=== PATIENT | male | born 1955 | race Two or more races ===

== ENCOUNTER 2018-06-27 17:52 | Inpatient (IN) | payer OTHER ==
[2018-06-27 18:27] LABS: VENOUS BLOOD BASE EXCESS -0.6 mmol/L; VENOUS BLOOD HCO3 25.6 mmol/L (20-32); VENOUS BLOOD PCO2 47.9 mmHg (35-63); VENOUS BLOOD PH 7.35 (7.30-7.42)
[2018-06-27 18:28] LABS: ABSOLUTE EOSINOPHILS # (AUTO) 0.1 10^3/uL (0.0-0.6); ABSOLUTE LYMPHOCYTES (AUTO) 3.1 10^3/uL (0.5-4.7); ABSOLUTE MONOCYTES (AUTO) 0.5 10^3/uL (0.1-1.4); ABSOLUTE NEUT (AUTO) 4.4 10^3/uL (1.7-8.2); BASOPHILS % (AUTO) 0.6 % (0-2); EOSINOPHILS % (AUTO) 1.1 % (0-6); HEMATOCRIT 45.1 % (37.9-51.0); LYMPHOCYTES % (AUTO) 37.9 % (13-45); MEAN CORPUSCULAR HEMOGLOBIN 29.8 pg (27.0-33.4); MEAN CORPUSCULAR HGB CONC 33.2 g/dL (32.0-36.0); MEAN CORPUSCULAR VOLUME 90 fl (80-97); MONOCYTES % (AUTO) 6.4 % (3-13); PLATELET COUNT 284 10^3/uL (150-450); RED BLOOD COUNT 5.02 10^6/uL (4.35-5.55); RED CELL DISTRIBUTION WIDTH 14.2 % (11.5-14.0); TOTAL CELLS COUNTED % (AUTO) 100 %; WHITE BLOOD COUNT 8.1 10^3/uL (4.0-10.5)
[2018-06-27 18:33] LABS: INTERNATIONAL RATION (INR) 0.92; PROTHROMBIN TIME 12.8 SEC (11.4-15.4)
[2018-06-27 18:42] LABS: APPEARANCE,URINE CLEAR; BILIRUBIN,URINE NEGATIVE (NEGATIVE); COLOR,URINE STRAW; GLUCOSE, URINE NEGATIVE (NEGATIVE); KETONES,URINE NEGATIVE (NEGATIVE); LEUKOCYTE ESTERASE,URINE NEGATIVE (NEGATIVE); NITRITE,URINE NEGATIVE (NEGATIVE); PROTEIN,URINE NEGATIVE (NEGATIVE); URINE SPECIFIC GRAVITY 1.005; UROBILINOGEN,URINE NEGATIVE mg/dL (<2.0)
--- NOTE | 2018-06-27 18:43 | RADIOLOGY REPORT (SQ) ---
EXAM DESCRIPTION: CHEST SINGLE VIEW COMPLETED DATE/TIME: 06/27/2018 6:33 pm REASON FOR STUDY: bed 9 sepsis protocol COMPARISON: None. NUMBER OF VIEWS: One view. TECHNIQUE: Single frontal radiographic view of the chest acquired. LIMITATIONS: None. FINDINGS: LUNGS AND PLEURA: No opacities, masses or pneumothorax. No pleural effusion. Attenuated bl ood vessels and flattened gregorio-diaphragms. MEDIASTINUM AND HILAR STRUCTURES: No masses. Contour normal. HEART AND VASCULAR STRUCTURES: Heart normal in size. Normal vasculature. BONES: No acute findings. HARDWARE: None in the chest. OTHER: No other significant finding. IMPRESSION: COPD. NO ACUTE RADIOGRAPHIC FINDING IN THE CHEST. TECHNICAL DOCUMENTATION: JOB ID: [id number] [employer]- All Rights Reserved Reading location - IP/workstation name: [email or web address]
--- NOTE | 2018-06-27 18:44 | ER Document Report ---
ED Respiratory Problem - General Mode of Arrival: Ambulatory Information source: Patient TRAVEL OUTSIDE OF THE [place] IN LAST 30 DAYS: No <MICHELINE SOLIS - Last Filed: 06/28/18 00:24> <CATRACHITO COLO - Last Filed: 06/28/18 02:33> - General Chief Complaint: Shortness Of Breath Stated Complaint: DIFFICULTY BREATHING Time Seen by Provider: 06/27/18 18:21 Notes: Patient is a 62 year old male with COPD and diabetes presents to the emergency department via EMS complaining of shortness of breath onset today. Patient states the shortness of breath was onset suddenly and denies an increased usage of his inhaler at home and also states he is on CPAP at home. Patient also complains of a cough. Patient denies any fevers. 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 He states his PCP is with the [facility] in [place]. EMS proceeded to give 2 albuterol treatments, 1 Atrovent, and 125 of Solu- Medrol. (MICHELINE SOLIS) - Related Data Allergies/Adverse Reactions: No Known Allergies Allergy (Unverified 06/27/18 19:59) Past Medical History - General Information source: Patient - Social History Smoking Status: Former Smoker Cigarette use (# per day): No Chew tobacco use (# tins/day): No Smoking Education Provided: No Frequency of alcohol use: Occasional Family History: Other - CHF Pulmonary Medical History: Reports: Hx COPD Endocrine Medical History: Reports: Hx Diabetes Mellitus Type 2 <MICHELINE SOLIS - Last Filed: 06/28/18 00:24> Review of Systems - Review of Systems Constitutional: No symptoms reported EENT: No symptoms reported Cardiovascular: No symptoms reported Respiratory: See HPI Gastrointestinal: No symptoms reported Genitourinary: No symptoms reported Male Genitourinary: No symptoms reported Musculoskeletal: No symptoms reported Skin: No symptoms reported Hematologic/Lymphatic: No symptoms reported Neurological/Psychological: No symptoms reported -: Yes All other systems reviewed and negative <MICHELINE SOLIS - Last Filed: 06/28/18 00:24> Physical Exam <MICHELINE SOLIS - Last Filed: 06/28/18 00:24> <CATRACHITO COOL - Last Filed: 06/28/18 02:33> - Vital signs Vitals: Resp Pulse Ox 28 H 100 06/27/18 18:00 06/27/18 18:00 - Notes Notes: GENERAL: Alert, interacts well. Moderate distress. HEAD: Normocephalic, atraumatic. EYES: Pupils equal, round, and reactive to light. Extraocular movements intact. ENT: Oral mucosa dry, tongue midline. NECK: Full range of motion. Supple. Trachea midline. LUNGS: Moderate respiratory distress, on BiPAP. Fine expiratory wheezes throughout. HEART: Regular rate and rhythm. No murmurs, gallops, or rubs. ABDOMEN: Soft, non-tender. Non-distended. Bowel sounds present in all 4 quadrants. EXTREMITIES: Moves all 4 extremities spontaneously. NEUROLOGICAL: Alert and oriented x3. Normal speech. PSYCH: Normal affect, normal mood. SKIN: Warm, dry, normal turgor. No rashes or lesions noted. (MICHELINE SOLIS) Course - Laboratory Result Diagrams: 06/27/18 18:00 06/27/18 19:00 <MICHELINE SOLIS - Last Filed: 06/28/18 00:24> - Laboratory Result Diagrams: 06/27/18 18:00 06/27/18 19:00 - Diagnostic Test Radiology reviewed: Reports reviewed <CATRACHITO COOL - Last Filed: 06/28/18 02:33> - Re-evaluation Re-evalutation: 06/27/18 19:22 Breathing improved on BiPAP. Speaking in full sentences with BiPAP. 06/27/18 21:11 Patient rechecked. Patient failed his trial off of BiPAP and has accidentally pulled his iv out. (MICHELINE SOLIS) Patient is a 62-year-old male who comes in with difficulty breathing and also had some alcohol before coming in. Patient has a history of COPD. Denies chest pain or any heart problems. Patient was given Solu-Medrol and DuoNeb. He is also given magnesium and was on BiPAP. Patient seemed to be improving and was trialed off BiPAP. He became tachypneic and hypoxic and had to be placed back on BiPAP. Given his symptoms and respiratory distress that has continued, he will be referred to the hospitalist service for admission. No pneumonia on chest x-ray. Patient and family are agreeable to this plan. Stable at the time of admission. Of note, patient denies any history of alcohol withdrawal. (CATRACHITO COOL) - Vital Signs Vital signs: Temp Pulse Resp BP Pulse Ox 15 122/83 100 06/28/18 00:22 06/27/18 23:02 06/28/18 00:22 - Laboratory Laboratory results interpreted by me: 06/27/18 06/27/18 06/27/18 18:00 19:00 19:00 RDW 14.2 H Glucose 135 H POC Glucose Lactic Acid 3.4 H 06/27/18 20:14 RDW Glucose POC Glucose 153 H Lactic Acid Critical Care Note - Critical Care Note Total time excluding time spent on procedures (mins): 45 - Evaluation and management of respiratory distress, management of COPD exacerbation, initiation of BiPAP, multiple re-evaluations, coordination of admission, counseling of patient and family <CATRACHITO COOL - Last Filed: 06/28/18 02:33> Discharge <MICHELINE SOLIS - Last Filed: 06/28/18 00:24> - Discharge Admitting Provider: Hospitalist - [facility] Unit Admitted: IMCU <CATRACHITO COOL - Last Filed: 06/28/18 02:33> - Discharge Clinical Impression: COPD exacerbation, Respiratory distress Alcohol intoxication Qualifiers: Complication of substance-induced condition: uncomplicated Qualified Code(s): F10.920 - Alcohol use, unspecified with intoxication, uncomplicated Condition: Stable Disposition: ADMITTED INPATIENT Scribe Attestation: 06/28/18 02:33 I personally performed the services described in the documentation, reviewed and edited the documentation which was dictated to the scribe in my presence, and it accurately records my words and actions. (CATRACHITO COOL)
[2018-06-27] MEDS ORDERED: NORMAL SALINE 1000 ML 500 ML IV ONE (19:04)
[2018-06-27] MEDS: MAGNESIUM SULFATE/D5W 1 GM/100 ML RTUPB IV SCH ×2 (19:05→20:26)
[2018-06-27 19:33] LABS: ALANINE AMINOTRANSFERASE 28 U/L (21-72); ALBUMIN 4.5 g/dL (3.5-5.0); ALCOHOL 159 mg/dL (NONE DETECTED); ALKALINE PHOSPHATASE 95 U/L (38-126); ANION GAP 18 (5-19); ASPARTATE AMINO TRANSFERASE 27 U/L (17-59); BILIRUBIN,DIRECT 0.3 mg/dL (0.0-0.4); BILIRUBIN,TOTAL 0.3 mg/dL (0.2-1.3); BLOOD UREA NITROGEN 8 mg/dL (7-20); CALCIUM 9.4 mg/dL (8.4-10.2); CARBON DIOXIDE 22 mmol/L (22-30); CHLORIDE 104 mmol/L (98-107); GLUCOSE 135 mg/dL (75-110); POTASSIUM 4.8 mmol/L (3.6-5.0); SODIUM 144.1 mmol/L (137-145); TOTAL PROTEIN 7.6 g/dL (6.3-8.2)
[2018-06-27] MEDS ORDERED: LEVOFLOXACIN 750 MG/D5W RTU 750 MG/150 ML RTUPB IV ONE (20:30)
[2018-06-27] MEDS ORDERED: CHLORPHENIRAMINE MALEATE 4 MG TABLET PO ONE ×2 (22:06→22:30)
[2018-06-27] MEDS ORDERED: HYDRALAZINE HCL INJ/PF 20 MG/1 ML SDV IV PRN (22:06)
[2018-06-27] MEDS ORDERED: IPRATROPIUM/ALBUTEROL 0.5-2.5 MG/3 ML AMPUL NEB PRN (22:07)
[2018-06-27] MEDS ORDERED: DEXTROSE 40% GEL 15 GM TUBE PO PRN ×2 (22:10)
[2018-06-27] MEDS ORDERED: GLUCAGON,HUMAN RECOMB 1 MG INJ IM PRN (22:10)
[2018-06-27] MEDS ORDERED: INSULIN LISPRO 100 UNIT/ML 3 ML VIAL SUBCUT PRN (22:10)
[2018-06-27] MEDS ORDERED: DEXTROSE 50%-WATER 25 GM/50 ML DISP.SYRIN IV PRN ×2 (22:10)
[2018-06-27] MEDS ORDERED: GABAPENTIN 400 MG CAPSULE PO ONE (22:30)
[2018-06-27] MEDS ORDERED: THIAMINE HCL 100 MG, FOLIC ACID 1 MG in NORMAL SALINE 250 ML IV ONE (22:30)
[2018-06-27] MEDS ORDERED: ATORVASTATIN CALCIUM 80 MG TABLET PO ONE (22:30)
[2018-06-27] MEDS ORDERED: FLUTICASONE NASAL SPRAY 50 MCG/SPRY 120 SPRAY/16 GM NASL ONE (22:30)
[2018-06-27] MEDS ORDERED: HEPARIN SOD (PORCINE) 5,000 UNIT/ML 1 ML SYRINGE SUBCUT ONE (22:30)
[2018-06-27] MEDS ORDERED: THIAMINE HCL INJ 200 MG/2 ML VIAL IV ONE (22:45)
[2018-06-27] MEDS ORDERED: NORMAL SALINE 250 ML IV ONE (22:45)
[2018-06-27] MEDS ORDERED: FOLIC ACID INJ 5 MG/1 ML 10 ML VIAL IV ONE (22:45)
[2018-06-28] MEDS: IPRATROPIUM/ALBUTEROL 0.5-2.5 MG/3 ML AMPUL NEB SCH ×4 (01:49→20:58)
--- NOTE | 2018-06-28 05:07 | PDOC H&P ---
History of Present Illness Admission Date/PCP: 06/27/18 21:26 Patient complains of: Shortness of breath History of Present Illness: ZAC PRESTON is a 62 year old male with a past medical history of COPD, chronic bronchitis, diabetes, obstructive sleep apnea, neuropathy and questionable alcohol dependence. Patient presents via EMS with shortness of breath over the last 24 hours. In the emergency room he is found to be hypoxic requiring BiPAP and acutely intoxicated. Denying chest pain or palpitations, infectious contacts or leg swelling. He is minimally improved with treatment including steroids, empiric antibiotic, BiPAP, albuterol and Atrovent. Past Medical History Pulmonary Medical History: Reports: Bronchitis, Chronic Obstructive Pulmonary Disease (COPD), Sleep Apnea Endocrine Medical History: Reports: Diabetes Mellitus Type 2 Psychiatric Medical History: Reports: Alcohol Dependency Social History Information Source: Patient, Relative Lives with: Spouse/Significant other Smoking Status: Former Smoker Number of Years Smokin Last Time Smoked: 2015 Frequency of Alcohol Use: Social Hx Recreational Drug Use: No Hx Prescription Drug Abuse: No - Advance Directive Resuscitation Status: Full Code Family History Family History: Other - CHF Parental Family History Reviewed: Yes Children Family History Reviewed: Yes Sibling(s) Family History Reviewed.: Yes Medication/Allergy Home Medications: Albuterol Sulfate [Albuterol Sulfate 2.5mg/3 mL] 2.5 mg NEB Q6 06/27/18 Albuterol Sulfate [Proair HFA Inhalation Aerosol 8.5 gm MDI] 1 puff IH Q6HP PRN 06/27/18 Atorvastatin Calcium [Lipitor 80 mg Tablet] 80 mg PO QHS 06/27/18 Budesonide/Formoterol Fumarate [Symbicort 160-4.5 Mcg Inhaler] 1 puff IH Q12 Fluticasone Propionate [Flonase Nasal [place] 50 Mcg/[place] 16 gm] 1 spray NASL BID 06/27/18 Furosemide [Lasix 20 mg Tablet] 20 mg PO DAILY 06/27/18 Gabapentin [Neurontin 400 mg Capsule] 400 mg PO Q8 06/27/18 Guaifenesin [Mucus Relief Chest Congestion] 400 mg PO TID 06/27/18 Metformin HCl [Glucophage 500 mg Tablet] 500 mg PO BID 06/27/18 Roflumilast [Daliresp 500 mcg Tablet] 500 mcg PO DAILY 06/27/18 Theophylline Anhydrous [Theophylline] 400 mg PO DAILY 06/27/18 Tiotropium [place] [Spiriva Handihaler 5 Cap/Kit (18 Mcg/Cap)] 1 puff IH DAILY 06/27/18 Allergies/Adverse Reactions: No Known Allergies Allergy (Unverified 06/27/18 19:59) Review of Systems Constitutional: ABSENT: chills, fever(s), headache(s), weight gain, weight loss Eyes: ABSENT: visual disturbances Ears: ABSENT: hearing changes Cardiovascular: ABSENT: chest pain, dyspnea on exertion, edema, orthropnea, palpitations Respiratory: ABSENT: cough, hemoptysis Gastrointestinal: ABSENT: abdominal pain, constipation, diarrhea, hematemesis, hematochezia, nausea, vomiting Genitourinary: ABSENT: dysuria, hematuria Musculoskeletal: ABSENT: joint swelling Integumentary: ABSENT: rash, wounds Neurological: ABSENT: abnormal gait, abnormal speech, confusion, dizziness, focal weakness, syncope Psychiatric: ABSENT: anxiety, depression, homidical ideation, suicidal ideation Endocrine: ABSENT: cold intolerance, heat intolerance, polydipsia, polyuria Hematologic/Lymphatic: ABSENT: easy bleeding, easy bruising Physical Exam Vital Signs: Temp Pulse Resp BP Pulse Ox 15 122/83 98 06/28/18 00:22 06/27/18 23:02 06/28/18 03:34 Pulse Oximeter Continuous Start: 06/27/18 22: 07 Freq: RTQ4 Status: Active Document 06/28/18 03:34 CMI (Rec: 06/28/18 03:35 CMI [id number]) Pulse Oximetry Assessment Oxygen Saturation (92-100) 98 Oxygen Flow Rate (L/min) 4 Oxygen Delivery Method Nasal Cannula Fraction of Inspired Oxygen (FIO2) 36 Equipment Usage Initial Set Up Continuous Pulse Oximeter 24 Hour Charge Charge Now Continuous SpO2 Machine # 1 Intake & Output 06/26/18 06/27/18 06/28/18 11:59 11:59 11:59 Intake Total 500 Balance 500 General appearance: PRESENT: cooperative, disheveled, mild distress, obese Head exam: PRESENT: atraumatic, normocephalic Eye exam: PRESENT: conjunctiva pink, EOMI, PERRLA. ABSENT: scleral icterus Ear exam: PRESENT: normal external ear exam Mouth exam: PRESENT: moist, tongue midline Neck exam: ABSENT: carotid bruit, JVD, lymphadenopathy, thyromegaly Respiratory exam: PRESENT: crackles, decreased breath sounds, prolonged expiratory phas, retraction, symmetrical, tachypnea, wheezes. ABSENT: rales, rhonchi Cardiovascular exam: PRESENT: RRR. ABSENT: diastolic murmur, rubs, systolic murmur Pulses: PRESENT: normal dorsalis pedis pul Vascular exam: PRESENT: normal capillary refill GI/Abdominal exam: PRESENT: normal bowel sounds, soft. ABSENT: distended, guarding, mass, organolmegaly, rebound, tenderness Rectal exam: PRESENT: deferred Extremities exam: PRESENT: full ROM. ABSENT: calf tenderness, clubbing, pedal edema Neurological exam: PRESENT: alert, awake, oriented to person, oriented to place , oriented to time, oriented to situation, CN II-XII grossly intact. ABSENT: motor sensory deficit Psychiatric exam: PRESENT: unusual affect Skin exam: PRESENT: dry, intact, warm. ABSENT: cyanosis, rash Results Laboratory Results: 06/27/18 23:43 Lactic Acid 3.7 H Impressions: Chest X-Ray 06/27/18 17:56 IMPRESSION: COPD. NO ACUTE RADIOGRAPHIC FINDING IN THE CHEST. Assessment & Plan - Diagnosis (1) COPD exacerbation Is this a current diagnosis for this admission?: Yes Plan: Telemetry observation, supplemental oxygen, albuterol and Atrovent, incentive spirometry, flutter valve, prednisone (2) Acute bronchitis Is this a current diagnosis for this admission?: Yes Plan: Trial prednisone and empiric antibiotic. Consider repeat chest x-ray if worsened (3) Sleep apnea Is this a current diagnosis for this admission?: Yes Plan: BiPAP support (4) Alcohol intoxication Qualifiers: Complication of substance-induced condition: uncomplicated Qualified Code(s ): F10.920 - Alcohol use, unspecified with intoxication, uncomplicated Is this a current diagnosis for this admission?: Yes Plan: Alcohol counseling, no history of DTs (5) Respiratory distress Is this a current diagnosis for this admission?: Yes Plan: Secondary to #1 - Time Time Spent: 50 to 70 Minutes
[2018-06-28] MEDS: HEPARIN SOD (PORCINE) 5,000 UNIT/ML 1 ML SYRINGE SUBCUT SCH ×3 (06:22→21:51)
[2018-06-28] MEDS: GABAPENTIN 400 MG CAPSULE PO SCH ×3 (06:23→21:48)
[2018-06-28 06:55] LABS: ABSOLUTE LYMPHOCYTES (AUTO) 1.1 10^3/uL (0.5-4.7); ABSOLUTE MONOCYTES (AUTO) 0.3 10^3/uL (0.1-1.4); ABSOLUTE NEUT (AUTO) 6.9 10^3/uL (1.7-8.2); BASOPHILS % (AUTO) 0.5 % (0-2); EOSINOPHILS % (AUTO) 0.1 % (0-6); HEMATOCRIT 41.3 % (37.9-51.0); MEAN CORPUSCULAR HEMOGLOBIN 30.5 pg (27.0-33.4); MEAN CORPUSCULAR HGB CONC 33.9 g/dL (32.0-36.0); MEAN CORPUSCULAR VOLUME 90 fl (80-97); MONOCYTES % (AUTO) 3.8 % (3-13); PLATELET COUNT 265 10^3/uL (150-450); RED BLOOD COUNT 4.59 10^6/uL (4.35-5.55); RED CELL DISTRIBUTION WIDTH 14.1 % (11.5-14.0); SEGMENTED NEUTROPHILS % (AUTO) 82.6 % (42-78); TOTAL CELLS COUNTED % (AUTO) 100 %; WHITE BLOOD COUNT 8.3 10^3/uL (4.0-10.5)
[2018-06-28 06:55] LABS: URINE AMPHETAMINES SCREEN NEGATIVE; URINE BARBITURATES SCREEN NEGATIVE; URINE BENZODIAZEPINES SCREEN NEGATIVE; URINE COCAINE SCREEN NEGATIVE; URINE MARIJUANA (THC) SCREEN NEGATIVE; URINE METHADONE SCREEN NEGATIVE
[2018-06-28 07:16] LABS: URINE PHENCYCLIDINE SCREEN NEGATIVE
[2018-06-28 07:22] LABS: ANION GAP 14 (5-19); BLOOD UREA NITROGEN 14 mg/dL (7-20); CALCIUM 9.3 mg/dL (8.4-10.2); CARBON DIOXIDE 26 mmol/L (22-30); CHLORIDE 104 mmol/L (98-107); GLUCOSE 153 mg/dL (75-110); POTASSIUM 4.8 mmol/L (3.6-5.0); SODIUM 143.5 mmol/L (137-145)
--- NOTE | 2018-06-28 07:48 | EKG REPORT ---
SEVERITY:- BORDERLINE ECG - SINUS TACHYCARDIA LEFT AXIS DEVIATION POOR R WAVE PROGRESSION ANTERIOR LEADS. : Confirmed by: Charlie Portillo MD 28-Jun-2018 07:47:50
[2018-06-28] MEDS: PREDNISONE 20 MG TABLET PO SCH ×2 (09:20→18:56)
[2018-06-28] MEDS: FLUTICASONE NASAL SPRAY 50 MCG/SPRY 120 SPRAY/16 GM NASL SCH ×2 (13:33→21:52)
[2018-06-28] MEDS ORDERED: FUROSEMIDE 20 MG TABLET PO ONE (13:45)
[2018-06-28] MEDS: THIAMINE HCL 100 MG, FOLIC ACID 1 MG in NORMAL SALINE 250 ML IV SCH (21:45)
[2018-06-28] MEDS: ATORVASTATIN CALCIUM 80 MG TABLET PO SCH (21:49)
[2018-06-28] MEDS: LEVOFLOXACIN 750 MG/D5W RTU 750 MG/150 ML RTUPB IV SCH (22:55)
[2018-06-29] MEDS: IPRATROPIUM/ALBUTEROL 0.5-2.5 MG/3 ML AMPUL NEB SCH ×4 (01:34→19:56)
[2018-06-29] MEDS: GABAPENTIN 400 MG CAPSULE PO SCH ×3 (06:19→21:06)
[2018-06-29] MEDS: HEPARIN SOD (PORCINE) 5,000 UNIT/ML 1 ML SYRINGE SUBCUT SCH ×3 (06:20→21:06)
[2018-06-29] MEDS: PREDNISONE 20 MG TABLET PO SCH ×2 (10:11→17:57)
[2018-06-29] MEDS: FUROSEMIDE 20 MG TABLET PO SCH (10:12)
[2018-06-29] MEDS: FLUTICASONE NASAL SPRAY 50 MCG/SPRY 120 SPRAY/16 GM NASL SCH ×2 (10:12→21:04)
--- NOTE | 2018-06-29 10:57 | PDOC PROGRESS REPORT ---
Subjective Progress Note for:: 06/28/18 Subjective:: Late entry for 06/28/18 encounter. Patient was admitted for acute bronchitis and COPD exacerbation. Patient appears slightly in distress. He is still wheezy. He still complains of shortness of breath albeit improved from when he came to the ER. Reason For Visit: COPD EXACERBATION PNEUMONIA Physical Exam Vital Signs: Temp Pulse Resp BP Pulse Ox 98.4 F 73 16 128/73 H 99 06/29/18 00:00 06/29/18 07:00 06/29/18 01:34 06/29/18 00:00 06/29/18 04:00 Pulse Oximeter Continuous Start: 06/27/18 22: 07 Freq: RTQ4 Status: Active Document 06/29/18 04:00 CMI (Rec: 06/29/18 04:05 CMI [id number]) Pulse Oximetry Assessment Oxygen Saturation (92-100) 99 Oxygen Flow Rate (L/min) 4 Oxygen Delivery Method Nasal Cannula Fraction of Inspired Oxygen (FIO2) 36 Equipment Usage Equipment in Use Continuous SpO2 Machine # 1 Intake & Output 06/28/18 06/29/18 06/30/18 06:59 06:59 06:59 Intake Total 860 1472.2 Output Total 450 2127 Balance 410 -654.8 Weight 208 lb 8.917 oz 210 lb 12.191 oz General appearance: PRESENT: mild distress Head exam: PRESENT: atraumatic, normocephalic Eye exam: PRESENT: conjunctiva pink, EOMI, PERRLA. ABSENT: scleral icterus Mouth exam: PRESENT: moist, tongue midline Neck exam: ABSENT: carotid bruit, JVD, lymphadenopathy, thyromegaly Respiratory exam: PRESENT: accessory muscle use, rhonchi, wheezes Cardiovascular exam: PRESENT: RRR. ABSENT: diastolic murmur, rubs, systolic murmur Pulses: PRESENT: normal dorsalis pedis pul GI/Abdominal exam: PRESENT: normal bowel sounds, soft. ABSENT: distended, guarding, mass, organolmegaly, rebound, tenderness Rectal exam: PRESENT: deferred Extremities exam: PRESENT: full ROM. ABSENT: calf tenderness, clubbing, pedal edema Results Laboratory Results: 06/28/18 06:33 06/28/18 06:33 Impressions: Chest X-Ray 06/27/18 17:56 IMPRESSION: COPD. NO ACUTE RADIOGRAPHIC FINDING IN THE CHEST. Assessment & Plan - Diagnosis (1) Acute respiratory failure with hypoxia Is this a current diagnosis for this admission?: Yes Plan: This is secondary to acute COPD exacerbation. Patient required BiPAP in the ER. He is saturating currently on BiPAP at still appear short of breath. Continue BiPAP. Wean down O2 requirements to nasal cannula as tolerated. (2) COPD exacerbation Is this a current diagnosis for this admission?: Yes Plan: COPD exacerbation with acute bronchitis. Patient did complain of increasing shortness of breath and minimally productive cough. Continue steroids, scheduled breathing treatments and antibiotics. (3) Alcohol use disorder Is this a current diagnosis for this admission?: Yes Plan: She did came in with elevated alcohol level. He did say that he drinks but only 2-3 times a month. He denies previous history of alcohol withdrawal. - Time Time Spent with patient: 15-24 minutes
--- NOTE | 2018-06-29 11:00 | PDOC PROGRESS REPORT ---
Subjective Progress Note for:: 06/29/18 Subjective:: Patient appears comfortable sitting on bed nasal cannula. He says he feels much better today and he is close to his baseline. Denies fever or chills. Denies chest pain. He is tolerating diet well. Reason For Visit: COPD EXACERBATION PNEUMONIA Physical Exam Vital Signs: Temp Pulse Resp BP Pulse Ox 98.2 F 81 20 124/75 100 06/29/18 07:58 06/29/18 07:58 06/29/18 07:58 06/29/18 07:58 06/29/18 07:58 Pulse Oximeter Continuous Start: 06/27/18 22: 07 Freq: RTQ4 Status: Active Document 06/29/18 04:00 CMI (Rec: 06/29/18 04:05 CMI [id number]) Pulse Oximetry Assessment Oxygen Saturation (92-100) 99 Oxygen Flow Rate (L/min) 4 Oxygen Delivery Method Nasal Cannula Fraction of Inspired Oxygen (FIO2) 36 Equipment Usage Equipment in Use Continuous SpO2 Machine # 1 Intake & Output 06/28/18 06/29/18 06/30/18 06:59 06:59 06:59 Intake Total 860 1472.2 Output Total 450 2127 Balance 410 -654.8 Weight 208 lb 8.917 oz 210 lb 12.191 oz General appearance: PRESENT: no acute distress, well-developed, well-nourished Eye exam: PRESENT: conjunctiva pink, EOMI, PERRLA. ABSENT: scleral icterus Mouth exam: PRESENT: moist, tongue midline Neck exam: ABSENT: carotid bruit, JVD, lymphadenopathy, thyromegaly Respiratory exam: PRESENT: wheezes - Occasional wheezes bilaterally albeit significantly improved from yesterday, no crackles, no use of accessory muscles Cardiovascular exam: PRESENT: RRR. ABSENT: diastolic murmur, rubs, systolic murmur Pulses: PRESENT: normal dorsalis pedis pul GI/Abdominal exam: PRESENT: normal bowel sounds, soft. ABSENT: distended, guarding, mass, organolmegaly, rebound, tenderness Rectal exam: PRESENT: deferred Extremities exam: PRESENT: full ROM. ABSENT: calf tenderness, clubbing, pedal edema Neurological exam: PRESENT: alert, awake, oriented to person, oriented to place , oriented to time, oriented to situation, CN II-XII grossly intact. ABSENT: motor sensory deficit Results Laboratory Results: 06/28/18 06:33 06/28/18 06:33 Impressions: Chest X-Ray 06/27/18 17:56 IMPRESSION: COPD. NO ACUTE RADIOGRAPHIC FINDING IN THE CHEST. Assessment & Plan - Diagnosis (1) Acute respiratory failure with hypoxia Is this a current diagnosis for this admission?: Yes Plan: Patient has been off BiPAP since last night. He is currently saturating well on 2 L of nasal cannula (2) COPD exacerbation Is this a current diagnosis for this admission?: Yes Plan: COPD exacerbation with acute bronchitis. Patient did complain of increasing shortness of breath and minimally productive cough. Continue steroids, scheduled breathing treatments and antibiotics. (3) Alcohol use disorder Is this a current diagnosis for this admission?: Yes Plan: She did came in with elevated alcohol level. He did say that he drinks but only 2-3 times a month. He denies previous history of alcohol withdrawal. Counseled on alcohol drinking moderation. - Time Time Spent with patient: 15-24 minutes
[2018-06-29] MEDS: THIAMINE HCL 100 MG, FOLIC ACID 1 MG in NORMAL SALINE 250 ML IV SCH (21:03)
[2018-06-29] MEDS: ATORVASTATIN CALCIUM 80 MG TABLET PO SCH (21:05)
[2018-06-29] MEDS: LEVOFLOXACIN 750 MG/D5W RTU 750 MG/150 ML RTUPB IV SCH (22:13)
[2018-06-30] MEDS: IPRATROPIUM/ALBUTEROL 0.5-2.5 MG/3 ML AMPUL NEB SCH ×3 (02:07→13:57)
[2018-06-30] MEDS: HEPARIN SOD (PORCINE) 5,000 UNIT/ML 1 ML SYRINGE SUBCUT SCH ×2 (05:09→13:24)
[2018-06-30] MEDS: GABAPENTIN 400 MG CAPSULE PO SCH ×2 (05:09→13:52)
[2018-06-30] MEDS: FLUTICASONE NASAL SPRAY 50 MCG/SPRY 120 SPRAY/16 GM NASL SCH (10:24)
[2018-06-30] MEDS: PREDNISONE 20 MG TABLET PO SCH ×2 (10:24→16:20)
[2018-06-30] MEDS: FUROSEMIDE 20 MG TABLET PO SCH (10:24)
[2018-06-30 16:13] VITALS: BP 123/79
--- NOTE | 2018-06-30 17:50 | PDOC DISCHARGE SUMMARY ---
General - Admit/Disc Date/PCP Admission Date/Primary Care Provider: 06/29/18 12:32 Discharge Date: 06/30/18 - Discharge Diagnosis (1) Acute respiratory failure with hypoxia Is this a current diagnosis for this admission?: Yes (2) COPD exacerbation Is this a current diagnosis for this admission?: Yes (3) Alcohol use disorder Is this a current diagnosis for this admission?: Yes - Additional Information Resuscitation Status: Full Code Prescriptions: Prednisone [Deltasone 20 mg Tablet] 40 mg PO BID 10 Days #20 tablet Home Medications: Albuterol Sulfate [Albuterol Sulfate 2.5mg/3 mL] 2.5 mg NEB Q6 06/27/18 Atorvastatin Calcium [Lipitor 80 mg Tablet] 80 mg PO QHS 06/27/18 Budesonide/Formoterol Fumarate [Symbicort 160-4.5 Mcg Inhaler] 1 puff IH Q12 Fluticasone Propionate [Flonase Nasal [place] 50 Mcg/[place] 16 gm] 1 spray NASL BID 06/27/18 Furosemide [Lasix 20 mg Tablet] 20 mg PO DAILY 06/27/18 Gabapentin [Neurontin 400 mg Capsule] 400 mg PO Q8 06/27/18 Guaifenesin [Mucus Relief Chest Congestion] 400 mg PO TID 06/27/18 Metformin HCl [Glucophage 500 mg Tablet] 500 mg PO BID 06/27/18 Roflumilast [Daliresp 500 mcg Tablet] 500 mcg PO DAILY 06/27/18 Theophylline Anhydrous [Theophylline] 400 mg PO DAILY 06/27/18 Tiotropium [place] [Spiriva Handihaler 5 Cap/Kit (18 Mcg/Cap)] 1 puff IH DAILY 06/27/18 Ipratropium/Albuterol Sulfate [Duoneb 3 ml Ampul] 3 ml NEB RTQ6 vial.neb Prednisone [Deltasone 20 mg Tablet] 40 mg PO BID 10 Days #20 tablet 06/30/18 History of Present Illness History of Present Illness: ZAC PRESTON is a 62 year old male with a past medical history of COPD, chronic bronchitis, diabetes, obstructive sleep apnea, neuropathy and questionable alcohol dependence. Patient presents via EMS with shortness of breath over the last 24 hours. In the emergency room he is found to be hypoxic requiring BiPAP and acutely intoxicated. Denying chest pain or palpitations, infectious contacts or leg swelling. He is minimally improved with treatment including steroids, empiric antibiotic, BiPAP, albuterol and Atrovent. Hospital Course Hospital Course: Patient was admitted for acute on chronic hypoxic respiratory failure secondary to COPD exacerbation. Also came in with alcohol intoxication. Patient was started on empiric antibiotics. He was also started on IV steroids and scheduled breathing treatments. Patient had gradual clinical improvement in his respiratory status. On day of discharge, patient says that he is at his baseline. He does say that the pain in his baseline he gets occasional wheezing in a short of breath when he walks from his bed towards the living room. Patient will be as sent home on a longer course of oral steroid tapering. He was also instructed to continue using DuoNeb scheduled for the next 2 days. Patient has completed 3 days of IV antibiotics and will not be sent home on oral antibiotics. Blood cultures were negative after 48 hrs. Chest x-ray was negative for pneumonia. 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 Physical Exam Vital Signs: Temp Pulse Resp BP Pulse Ox 97.8 F 96 21 H 112/84 98 06/30/18 12:00 06/30/18 14:00 06/30/18 13:57 06/30/18 12:00 06/30/18 13:57 Pulse Oximeter Continuous Start: 06/27/18 22: 07 Freq: RTQ4 Status: Active Document 06/30/18 13:57 TPO (Rec: 06/30/18 14:09 TPO [id number]) Pulse Oximetry Assessment Oxygen Saturation (92-100) 98 Oxygen Flow Rate (L/min) 3 Oxygen Delivery Method Nasal Cannula Fraction of Inspired Oxygen (FIO2) 32 Equipment Usage Equipment in Use Continuous SpO2 Machine # 1 Intake & Output 06/29/18 06/30/18 07/01/18 06:59 06:59 06:59 Intake Total 857.2 Output Total 1300 Balance -442.8 Weight 217 lb 6.012 oz General appearance: PRESENT: no acute distress, well-developed, well-nourished Head exam: PRESENT: atraumatic, normocephalic Eye exam: PRESENT: conjunctiva pink, EOMI, PERRLA. ABSENT: scleral icterus Neck exam: ABSENT: carotid bruit, JVD, lymphadenopathy, thyromegaly Respiratory exam: PRESENT: wheezes - Occasional wheezes bilaterally significantly improved from yesterday. No crackles. Cardiovascular exam: PRESENT: RRR. ABSENT: diastolic murmur, rubs, systolic murmur Pulses: PRESENT: normal dorsalis pedis pul Vascular exam: PRESENT: normal capillary refill GI/Abdominal exam: PRESENT: normal bowel sounds, soft. ABSENT: distended, guarding, mass, organolmegaly, rebound, tenderness Rectal exam: PRESENT: deferred Neurological exam: PRESENT: alert, awake, oriented to person, oriented to place , oriented to time, oriented to situation, CN II-XII grossly intact. ABSENT: motor sensory deficit Results Impressions: Chest X-Ray 06/27/18 17:56 IMPRESSION: COPD. NO ACUTE RADIOGRAPHIC FINDING IN THE CHEST. Qualifiers - * PATIENT BEING DISCHARGED WITH ANY OF THE FOLLOWING DIAGNOSIS: No
== END 2018-06-30 17:45 | disposition home or self-care (01) | DRG 190 ==
LOC: ER 17:52 → INTOOBSV 21:26 → EH 21:26 → 5 06-28 03:16 → OBSVTOIN 06-29 12:32
PROVIDERS: ADMIT Internal Medicine; ATTEND Internal Medicine
PROC: 5A09457 Assistance with Respiratory Ventilation, 24-96 Consecutive Hours, Continuous Positive Airway Pressure (ICD-10-PCS; principal; 2018-06-27)
DX: J44.1 Chronic obstructive pulmonary disease with (acute) exacerbation (principal); J96.01 Acute respiratory failure with hypoxia; F10.229 Alcohol dependence with intoxication, unspecified; J44.0 Chronic obstructive pulmonary disease with (acute) lower respiratory infection; J20.9 Acute bronchitis, unspecified; G47.33 Obstructive sleep apnea (adult) (pediatric); E11.42 Type 2 diabetes mellitus with diabetic polyneuropathy; Z87.891 Personal history of nicotine dependence; Z79.51 Long term (current) use of inhaled steroids; Z79.84 Long term (current) use of oral hypoglycemic drugs
CPT/HCPCS: 36415; 71045; 80048; 80053; 80307; 81001; 82803; 82962; 83605; 83880; 84484; 85025; 85610; 87040; 87077; 87086; 93005; 93010; 94660; 94667; 94668; 94762; 94799; 96365; 96366; 96368; 99291; G0378; J1644; J1815; J1956; J3411; J3475; J3490; J7030; J7050; J7512; J7620

== ENCOUNTER 2019-01-23 09:51 | Day surgery (SDC) | payer OTHER ==
[~2019-01-23 09:51] MED LIST: CHONDR SU A NA/HYALUR INTRAOC KIT (SURGICARE) ONE; EPINEPHRINE INJ/PF 1 MG/1 ML AMPULE ONE; KETOROLAC TROMETHAMINE 0.45% 4 DROP/0.4 ML DROPERETTE OD PRN; LIDOCAINE 1% INJ-PF (10 MG/ML) 30 ML SDV ONE
[2019-01-23] MEDS ORDERED: FENTANYL CITRATE INJ/PF 100 MCG/2 ML AMPUL ONE (10:54)
[2019-01-23] MEDS ORDERED: MIDAZOLAM 2 MG/2 ML INJ ONE (10:54)
[2019-01-23] MEDS: TROPICAMIDE 1% OPH SOLN 3 ML OD PRN ×3 (10:56→11:12)
[2019-01-23] MEDS: CYCLOPENTOLATE 0.2%/PHENYLEPHRINE 1% OPH SOLN 2 ML OD PRN ×3 (10:56→11:12)
[2019-01-23] MEDS: BESIFLOXACIN HCL 0.6% OPH SUSP 5 ML BOTTLE OD PRN ×4 (10:57→11:34)
[2019-01-23] MEDS ORDERED: ALBUTEROL SULFATE 0.083% NEB 2.5 MG/3 ML AMPUL NEB ONE (10:57)
[2019-01-23] MEDS: TETRACAINE HCL 0.5% OPH SOLN 0.6 ML DROPERETTE OD PRN ×3 (10:58→11:15)
[2019-01-23] MEDS: DORZOLAMIDE HCL 2%/TIMOLOL MALEAT 0.5% OPH SOLN 10 ML OD PRN ×2 (11:34)
[2019-01-23] MEDS: TOBRAMYCIN SULFATE/DEXAMETH OPH OINTMENT 3.5 GM ONE ×2 (11:34)
[2019-01-23] MEDS ORDERED: LIDOCAINE 1%/PHENYLEPHRINE 1.5% 1 ML VIAL ONE (11:50)
== END 2019-01-23 12:31 | disposition home or self-care (01) ==
LOC: SC 09:51
PROVIDERS: ATTEND Ophthalmology
DX: H25.11 Age-related nuclear cataract, right eye (principal); J43.9 Emphysema, unspecified; J96.11 Chronic respiratory failure with hypoxia; E78.00 Pure hypercholesterolemia, unspecified; I10 Essential (primary) hypertension; Z79.84 Long term (current) use of oral hypoglycemic drugs; Z79.899 Other long term (current) drug therapy; Z79.51 Long term (current) use of inhaled steroids; Z79.891 Long term (current) use of opiate analgesic
CPT/HCPCS: 66984; 82962; V2632; J2250; J3490 ×2; J0171; J3010; J2370; 142

== ENCOUNTER 2019-02-06 09:23 | Day surgery (SDC) | payer OTHER ==
[~2019-02-06 09:23] MED LIST changes: -CHONDR SU A NA/HYALUR INTRAOC KIT (SURGICARE) ONE; -EPINEPHRINE INJ/PF 1 MG/1 ML AMPULE ONE; -KETOROLAC TROMETHAMINE 0.45% 4 DROP/0.4 ML DROPERETTE OD PRN; +KETOROLAC TROMETHAMINE 0.45% 4 DROP/0.4 ML DROPERETTE OS PRN; -LIDOCAINE 1% INJ-PF (10 MG/ML) 30 ML SDV ONE
[2019-02-06] MEDS ORDERED: LIDOCAINE 1% INJ-PF (10 MG/ML) 30 ML SDV ONE (09:51)
[2019-02-06] MEDS ORDERED: EPINEPHRINE INJ/PF 1 MG/1 ML AMPULE ONE (09:51)
[2019-02-06] MEDS ORDERED: CHONDR SU A NA/HYALUR INTRAOC KIT (SURGICARE) ONE (09:52)
[2019-02-06] MEDS: TETRACAINE HCL 0.5% OPH SOLN 0.6 ML DROPERETTE OS PRN ×3 (10:30→11:22)
[2019-02-06] MEDS: CYCLOPENTOLATE 0.2%/PHENYLEPHRINE 1% OPH SOLN 2 ML OS PRN ×3 (10:30→10:55)
[2019-02-06] MEDS: BESIFLOXACIN HCL 0.6% OPH SUSP 5 ML BOTTLE OS PRN ×4 (10:30→11:44)
[2019-02-06] MEDS: TROPICAMIDE 1% OPH SOLN 3 ML OS PRN ×3 (10:30→10:55)
[2019-02-06] MEDS ORDERED: ALBUTEROL SULFATE 0.083% NEB 2.5 MG/3 ML AMPUL NEB ONE (10:40)
[2019-02-06] MEDS ORDERED: MIDAZOLAM 2 MG/2 ML INJ ONE (11:05)
[2019-02-06] MEDS ORDERED: ONDANSETRON HCL INJ/PF 4 MG/2 ML SDV ONE (11:05)
[2019-02-06] MEDS ORDERED: FENTANYL CITRATE INJ/PF 100 MCG/2 ML AMPUL ONE (11:06)
[2019-02-06] MEDS: TOBRAMYCIN SULFATE/DEXAMETH OPH OINTMENT 3.5 GM ONE ×2 (11:44)
== END 2019-02-06 12:38 | disposition home or self-care (01) ==
LOC: SC 09:23
PROVIDERS: ATTEND Ophthalmology
DX: H25.12 Age-related nuclear cataract, left eye (principal); Z98.41 Cataract extraction status, right eye; E78.00 Pure hypercholesterolemia, unspecified; I10 Essential (primary) hypertension; E11.9 Type 2 diabetes mellitus without complications; J43.9 Emphysema, unspecified; J96.11 Chronic respiratory failure with hypoxia; Z79.899 Other long term (current) drug therapy; Z79.51 Long term (current) use of inhaled steroids; Z87.891 Personal history of nicotine dependence; Z79.84 Long term (current) use of oral hypoglycemic drugs; Z99.81 Dependence on supplemental oxygen
CPT/HCPCS: 66984; 82962; V2632; J2250; J3490 ×3; J0171; J3010; J2405; 142

== ENCOUNTER 2019-04-29 11:52 | Inpatient (IN) | payer OTHER, MEDICARE ==
--- NOTE | 2019-04-29 14:11 | ER Document Report ---
ED Medical Screen (RME) - General Chief Complaint: Edema Stated Complaint: LEG SWELLING Time Seen by Provider: 04/29/19 14:07 Primary Care Provider: [facility] [Primary Care Provider] - Follow up as needed TRAVEL OUTSIDE OF THE [place] IN LAST 30 DAYS: No - HPI Notes: 04/29/19 14:09 Patient is a 63-year-old male with a history of oxygen dependent COPD, hypertension, COPD who presents complaining of ongoing foot wound/ulceration that is been present for over a year as well as bilateral lower extremity swelling which is significantly worse than his normal. Patient states that he was seen by his film critic at the [place] [facility] in [facility] who told him that it was infected, but patient states that he is not on any antibiotics. He is eating and drinking without difficulty. He is urinating normally. Denies RODRIGUEZ, fever, neck pain, URI, CP, Abd pain, dysuria, back pain. I have treated and performed a rapid initial assessment of this patient. A comprehensive ED assessment and evaluation of the patient, analysis of test results and completion of medical decision making process will be conducted by additional ED providers. PHYSICAL EXAMINATION: GENERAL: Well-appearing, well-nourished and in no acute distress. A&Ox4. Answers questions appropriately. LUNGS: Diminished bilaterally with prolonged expiration and wheezing HEART: Regular rate and rhythm without murmurs, rubs, gallops. Extremities: 3+ pitting edema bilateral lower extremities. There is a noted foul-smelling ulceration to the left proximal foot/ankle area with associated erythema and warmth. NEUROLOGICAL: Normal speech, normal gait. PSYCH: Normal mood, normal affect. - Related Data Allergies/Adverse Reactions: No Known Allergies Allergy (Verified 01/21/19 14:38) Past Medical History - Past Medical History Cardiac Medical History: Reports: Hx Hypertension Denies: Hx Heart Attack Pulmonary Medical History: Reports: Hx Bronchitis, Hx COPD, Hx Sleep Apnea Denies: Hx Asthma Neurological Medical History: Denies: Hx Cerebrovascular Accident, Hx Seizures Endocrine Medical History: Reports: Hx Diabetes Mellitus Type 2 Renal/ Medical History: Denies: Hx Peritoneal Dialysis GI Medical History: Denies: Hx Hepatitis, Hx Hiatal Hernia, Hx Ulcer Infectious Medical History: Denies: Hx Hepatitis Past Surgical History: Denies: Hx Open Heart Surgery, Hx Pacemaker Physical Exam - Vital signs Vitals: Temp Pulse Resp BP Pulse Ox 97.6 F 99 22 H 132/75 H 93 04/29/19 12:45 04/29/19 12:45 04/29/19 12:45 04/29/19 12:45 04/29/19 12:45 Course - Vital Signs Vital signs: Temp Pulse Resp BP Pulse Ox 97.6 F 99 22 H 132/75 H 93 04/29/19 12:45 04/29/19 12:45 04/29/19 12:45 04/29/19 12:45 04/29/19 12:45 Doctor's Discharge - Discharge Referrals: [facility] [Primary Care Provider] - Follow up as needed
--- NOTE | 2019-04-29 14:53 | RADIOLOGY REPORT (SQ) ---
EXAM DESCRIPTION: ANKLE LEFT COMPLETE COMPLETED DATE/TIME: 04/29/2019 2:44 pm REASON FOR STUDY: chronic wound left prox dorsal foot/lateral ankle COMPARISON: None. NUMBER OF VIEWS: Three views. TECHNIQUE: AP, lateral, and oblique radiographic images acquired of the left ankle. LIMITATIONS: None. FINDINGS: MINERALIZATION: Normal. BONES: There is no bone destruction or other evidence of osteomyelitis. JOINTS: No effusions. SOFT TISSUES: Soft tissue wound anterior laterally at the ankle. OTHER: No other significant finding. IMPRESSION: No evidence of osteomyelitis. TECHNICAL DOCUMENTATION: JOB ID: [id number] [employer]- All Rights Reserved Reading location - IP/workstation name: [email or web address]
--- NOTE | 2019-04-29 14:54 | RADIOLOGY REPORT (SQ) ---
EXAM DESCRIPTION: FOOT LEFT COMPLETE COMPLETED DATE/TIME: 04/29/2019 2:44 pm REASON FOR STUDY: chronic wound left prox dorsal foot/lateral ankle COMPARISON: None. NUMBER OF VIEWS: Three views. TECHNIQUE: AP, lateral and oblique radiographic images acquired of the left foot. LIMITATIONS: None. FINDINGS: MINERALIZATION: Normal. BONES: No acute fracture or dislocation. No worrisome bone lesions. JOINTS: No effusions. SOFT TISSUES: Dorsal soft tissue swelling. There appears to be a wound located anterior laterally at the ankle. OTHER: No other significant finding. IMPRESSION: No evidence of osteomyelitis. TECHNICAL DOCUMENTATION: JOB ID: [id number] [employer]- All Rights Reserved Reading location - IP/workstation name: [email or web address]
--- NOTE | 2019-04-29 14:57 | RADIOLOGY REPORT (SQ) ---
EXAM DESCRIPTION: CHEST SINGLE VIEW COMPLETED DATE/TIME: 04/29/2019 2:44 pm REASON FOR STUDY: b/l LE edema, wheeze (COPD) COMPARISON: None. EXAM PARAMETERS: NUMBER OF VIEWS: One view. TECHNIQUE: Single frontal radiographic view of the chest acquired. RADIATION DOSE: NA LIMITATIONS: None. FINDINGS: LUNGS AND PLEURA: Marked hyperexpansion of the lungs is flattening the diaphragms. Scarri ng in the right upper lobe. No acute infiltrate effusion, or mass. MEDIASTINUM AND HILAR STRUCTURES: No masses. Contour normal. HEART AND VASCULAR STRUCTURES: Heart normal in size. Normal vasculature. BONES: No acute findings. HARDWARE: None in the chest. OTHER: No other significant finding. IMPRESSION: Chronic lung changes with no acute cardiopulmonary findings. TECHNICAL DOCUMENTATION: JOB ID: [id number] [employer]- All Rights Reserved Reading location - IP/workstation name: [email or web address]
[2019-04-29 15:01] LABS: ABSOLUTE EOSINOPHILS # (AUTO) 0.1 10^3/uL (0.0-0.6); ABSOLUTE LYMPHOCYTES (AUTO) 1.4 10^3/uL (0.5-4.7); ABSOLUTE MONOCYTES (AUTO) 0.6 10^3/uL (0.1-1.4); ABSOLUTE NEUT (AUTO) 5.2 10^3/uL (1.7-8.2); BASOPHILS % (AUTO) 0.6 % (0-2); EOSINOPHILS % (AUTO) 0.9 % (0-6); HEMATOCRIT 43.2 % (37.9-51.0); HEMOGLOBIN 14.6 g/dL (13.5-17.0); MEAN CORPUSCULAR HGB CONC 33.8 g/dL (32.0-36.0); MEAN CORPUSCULAR VOLUME 95 fl (80-97); MONOCYTES % (AUTO) 8.6 % (3-13); PLATELET COUNT 311 10^3/uL (150-450); RED BLOOD COUNT 4.57 10^6/uL (4.35-5.55); RED CELL DISTRIBUTION WIDTH 14.9 % (11.5-14.0); SEGMENTED NEUTROPHILS % (AUTO) 70.9 % (42-78); TOTAL CELLS COUNTED % (AUTO) 100 %; WHITE BLOOD COUNT 7.3 10^3/uL (4.0-10.5)
[2019-04-29 15:28] LABS: ALANINE AMINOTRANSFERASE 20 U/L (21-72); ALBUMIN 3.8 g/dL (3.5-5.0); ALKALINE PHOSPHATASE 116 U/L (38-126); ANION GAP 7 (5-19); ASPARTATE AMINO TRANSFERASE 19 U/L (17-59); BILIRUBIN,DIRECT 0.2 mg/dL (0.0-0.4); BILIRUBIN,TOTAL 0.3 mg/dL (0.2-1.3); BLOOD UREA NITROGEN 9 mg/dL (7-20); CARBON DIOXIDE 36 mmol/L (22-30); CHLORIDE 93 mmol/L (98-107); GLUCOSE 80 mg/dL (75-110); POTASSIUM 4.2 mmol/L (3.6-5.0); SODIUM 135.8 mmol/L (137-145); TOTAL PROTEIN 7.1 g/dL (6.3-8.2)
[2019-04-29] MEDS ORDERED: VANCOMYCIN HCL INJ 1000 MG VIAL IV ONE (16:50)
[2019-04-29] MEDS ORDERED: PIPERACILLIN/TAZOBACTAM 3.375 GM VIAL IV ONE (16:51)
[2019-04-29] MEDS ORDERED: NORMAL SALINE 1000 ML 1,000 ML IV ONE (16:51)
--- NOTE | 2019-04-29 18:20 | ER Document Report ---
ED General - General Chief Complaint: Edema Stated Complaint: LEG SWELLING Time Seen by Provider: 04/29/19 14:07 TRAVEL OUTSIDE OF THE U.S[place] IN LAST 30 DAYS: No - HPI Notes: 63-year-old male with history of COPD on 3 L of oxygen, diabetes to the emergency department with complaints of progressively worsening bilateral leg swelling, erythema, pain and left ankle wound that has been progressively worsening for the past week. He states that he has had a wound to his left ankle for several months and initially it started out about approximately 1 cm. Over time it has gotten much worse and much bigger. He has been seen at the [place] [facility]. This past week he noticed that the wound got bigger more purulent foul-smelling and the redness in his leg started to be increased greatly. He states that the warmth in the leg redness that spreading up his legs just started in the past 24 hours. He states that he did see his clinical nurse specialist 1 week ago and was told that the ulcer was infected. He was supposed to be seen in follow-up and started on antibiotics but that never happened. He denies fev ers, chills, nausea, vomiting, diarrhea, abdominal pain. - Related Data Allergies/Adverse Reactions: No Known Allergies Allergy (Verified 01/21/19 14:38) Past Medical History - General Information source: Patient - Social History Smoking Status: Former Smoker Lives with: Alone Family History: Reviewed & Not Pertinent, Other - CHF Patient has suicidal ideation: No Patient has homicidal ideation: No - Past Medical History Cardiac Medical History: Reports: Hx Congestive Heart Failure, Hx Hypertension Denies: Hx Heart Attack Pulmonary Medical History: Reports: Hx Bronchitis, Hx COPD, Hx Sleep Apnea Denies: Hx Asthma Neurological Medical History: Denies: Hx Cerebrovascular Accident, Hx Seizures Endocrine Medical History: Reports: Hx Diabetes Mellitus Type 2 Renal/ Medical History: Denies: Hx Peritoneal Dialysis GI Medical History: Denies: Hx Hepatitis, Hx Hiatal Hernia, Hx Ulcer Infectious Medical History: Denies: Hx Hepatitis Past Surgical History: Denies: Hx Open Heart Surgery, Hx Pacemaker Review of Systems - Review of Systems Constitutional: denies: Chills, Fever EENT: No symptoms reported Cardiovascular: denies: Chest pain, Palpitations, Syncope, Dizziness, Lightheaded Respiratory: Other - On 3 L of oxygen continuously. denies: Cough Gastrointestinal: denies: Abdominal pain, Diarrhea, Nausea, Vomiting Musculoskeletal: Leg swelling, Ankle swelling - Bilateral lower leg edema, erythema, Skin: Other - Left anterior ankle/foot ulcer with purulent drainage Neurological/Psychological: denies: No symptoms reported -: Yes All other systems reviewed and negative Physical Exam - Vital signs Vitals: Temp Pulse Resp BP Pulse Ox 97.6 F 99 22 H 132/75 H 93 04/29/19 12:45 04/29/19 12:45 04/29/19 12:45 04/29/19 12:45 04/29/19 12:45 Interpretation: Normal - General General appearance: Appears well In distress: None - HEENT Head: Normocephalic Eyes: Normal Conjunctiva: Normal Extraocular movements intact: Yes Pupils: PERRL - Respiratory Respiratory status: No respiratory distress, Other - 3 L of oxygen Chest status: Nontender Breath sounds: Normal. No: Rales, Rhonchi, Stridor Chest palpation: Normal - Cardiovascular Rhythm: Regular Heart sounds: Normal auscultation Murmur: No - Abdominal Inspection: Normal Distension: No distension Bowel sounds: Normal Tenderness: Nontender Organomegaly: No organomegaly - Extremities General upper extremity: Normal inspection, Nontender, Normal color, Normal ROM, Normal temperature General lower extremity: Normal inspection, Nontender, Normal ROM, Normal weight bearing. No: Kris's sign Ankle: Tender, Edema, Other Foot: Tender Notes: Bilateral lower extremities are warm and have beefy erythema. There is some mild weeping bilaterally. There is a foul smelling discharge from an ulcer to the left ankle/foot that is very TTP around the wound. There appears to be streaking lymphangitis to bilateral inner groin. Course - Vital Signs Vital signs: Temp Pulse Resp BP Pulse Ox 98.6 F 94 22 H 144/100 H 99 04/29/19 19:00 04/29/19 20:11 04/29/19 20:11 04/29/19 18:01 04/29/19 20:11 - Laboratory Result Diagrams: 04/29/19 14:44 04/29/19 14:44 Laboratory results interpreted by me: 04/29/19 04/29/19 14:44 14:44 RDW 14.9 H Sodium 135.8 L Chloride 93 L Carbon Dioxide 36 H Creatinine 0.45 L ALT 20 L - Transfer of Care Notes: 04/29/[address] Orellana about the patient and she agrees with plan for admission. Called hospitalist team, Spoke with Dr. Honeycutt, hospitalist. He states that will come and see patient, admit him. He is aware of labs, pat ramin's physical exam; patient to go to a Telemetry bed. Impression: Diabetic foot ulcer, bilateral leg cellulitis. Patient admitted to hospitalist service. Discharge - Discharge Clinical Impression: Diabetic ulcer of ankle, Bilateral lower leg cellulitis Disposition: ADMITTED INPATIENT Admitting Provider: Yinka (Hospitalist) Unit Admitted: Telemetry
[2019-04-29] MEDS ORDERED: GLUCAGON,HUMAN RECOMB 1 MG INJ IM PRN (18:30)
[2019-04-29] MEDS ORDERED: VANCOMYCIN HCL 0 MG in DEXTROSE 5%-WATER 250 ML IV NR (18:30)
[2019-04-29] MEDS ORDERED: DEXTROSE 50%-WATER 25 GM/50 ML DISP.SYRIN IV PRN ×2 (18:30)
[2019-04-29] MEDS ORDERED: DEXTROSE 40% GEL 15 GM TUBE PO PRN ×2 (18:30)
--- NOTE | 2019-04-29 18:51 | PDOC H&P ---
History of Present Illness Admission Date/PCP: [facility] History of Present Illness: ZAC PRESTON is a 63 year old male with a history of diabetes and oxygen dependent COPD who has had a wound on his left ankle that started about a year and a half ago. Since it has gradually grown in size. He has been following up with the [facility] for it. He comes in today because it is gotten worse and its oozing in his leg is red and swollen more so than normal. He has not had any fever. He has taken antibiotics a couple of times before since he has had the wound. He is being admitted for IV antibiotics, surgical consultation, and evaluation for osteomyelitis. He had some wheezing on examination he says he wheezes all the time. Past Medical History Cardiac Medical History: Reports: Congestive Heart Failure, Hypertension Denies: Myocardial Infarction Pulmonary Medical History: Reports: Bronchitis, Chronic Obstructive Pulmonary Disease (COPD), Sleep Apnea Denies: Asthma Neurological Medical History: Denies: Seizures Endocrine Medical History: Reports: Diabetes Mellitus Type 2 GI Medical History: Denies: Hepatitis, Hiatal Hernia Hematology: Denies: Anemia, Sickle Cell Disease Past Surgical History Past Surgical History: Denies: Pacemaker Social History Lives with: Alone Smoking Status: Former Smoker Frequency of Alcohol Use: Social Hx Recreational Drug Use: No Hx Prescription Drug Abuse: No Family History Family History: Reviewed & Not Pertinent, Other - CHF Parental Family History Reviewed: Yes - Nothing known Children Family History Reviewed: NA Sibling(s) Family History Reviewed.: Yes - He does not know Medication/Allergy Home Medications: Albuterol Sulfate [Albuterol Sulfate 2.5mg/3 mL] 2.5 mg NEB Q6 06/27/18 Atorvastatin Calcium [Lipitor 80 mg Tablet] 80 mg PO QHS 06/27/18 Budesonide/Formoterol Fumarate [Symbicort 160-4.5 Mcg Inhaler] 1 puff IH Q12 0 06/27/18 Metformin HCl [Glucophage 500 mg Tablet] 500 mg PO BID 06/27/18 Theophylline Anhydrous [Theophylline] 400 mg PO DAILY 06/27/18 Tiotropium [place] [Spiriva Handihaler 5 Cap/Kit (18 Mcg/Cap)] 1 puff IH DAILY 06/27/18 Tramadol HCl [Ultram 50 mg Tablet] 50 mg PO ASDIR PRN 01/21/19 Allergies/Adverse Reactions: No Known Allergies Allergy (Verified 01/21/19 14:38) Review of Systems All systems: reviewed and no additional remarkable complaints except as stated - All systems reviewed and were negative except as noted above in the HPI Physical Exam Vital Signs: Temp Pulse Resp BP Pulse Ox 97.6 F 99 19 135/93 H 99 04/29/19 12:45 04/29/19 12:45 04/29/19 15:33 04/29/19 17:01 04/29/19 18:00 Intake & Output 04/28/19 04/29/19 04/30/19 06:59 06:59 06:59 Weight 89.811 kg General appearance: PRESENT: no acute distress, cooperative, disheveled, obese Head exam: PRESENT: atraumatic, normocephalic Eye exam: PRESENT: EOMI, PERRLA. ABSENT: conjunctival injection, nystagmus, scleral icterus Ear exam: PRESENT: normal external ear exam Mouth exam: PRESENT: moist, neck supple Teeth exam: PRESENT: poor dentation Throat exam: ABSENT: post pharyngeal erythema Neck exam: PRESENT: full ROM. ABSENT: carotid bruit, JVD, lymphadenopathy, meningismus, tenderness, thyromegaly Respiratory exam: PRESENT: prolonged expiratory phas, symmetrical, wheezes. ABSENT: accessory muscle use, chest wall tenderness, crackles, rhonchi, tachypnea, unlabored Cardiovascular exam: PRESENT: RRR, +S1, +S2. ABSENT: diastolic murmur, systolic murmur Pulses: PRESENT: normal carotid pulses Vascular exam: PRESENT: normal capillary refill GI/Abdominal exam: PRESENT: normal bowel sounds, soft. ABSENT: distended, g uarding, rebound, tenderness Extremities exam: PRESENT: pedal edema, +2 edema - Bilateral lower extremities. ABSENT: clubbing Musculoskeletal exam: ABSENT: deformity Neurological exam: PRESENT: alert, awake, oriented to person, oriented to place, oriented to time, oriented to situation, CN II-XII grossly intact. ABSENT: m otor sensory deficit Psychiatric exam: PRESENT: appropriate affect, normal mood Skin exam: PRESENT: other - He has a large wound on his left lateral ankle. It has a wet yellow eschar. It is weeping. The exudate is clear. There is surrounding erythema. He also has some fluid-filled blisters primarily on the left lower extremity below the knee but he has a few smaller ones on the right lower extremity below the knee as well Results Laboratory Results: 04/29/19 14:44 04/29/19 14:44 04/29/19 04/29/19 04/29/19 14:44 14:44 17:59 WBC 7.3 RBC 4.57 Hgb 14.6 Hct 43.2 MCV 95 MCH 32.0 MCHC 33.8 RDW 14.9 H Plt Count 311 Seg Neutrophils % 70.9 Lymphocytes % 19.0 Monocytes % 8.6 Eosinophils % 0.9 Basophils % 0.6 Absolute Neutrophils 5.2 Absolute Lymphocytes 1.4 Absolute Monocytes 0.6 Absolute Eosinophils 0.1 Absolute Basophils 0.0 Sodium 135.8 L Potassium 4.2 Chloride 93 L Carbon Dioxide 36 H Anion Gap 7 BUN 9 Creatinine 0.45 L Est GFR ( Amer) > 60 Est GFR (Non-Af Amer) > 60 Glucose 80 Lactic Acid 1.6 Calcium 9.0 Total Bilirubin 0.3 AST 19 ALT 20 L Alkaline Phosphatase 116 Total Protein 7.1 Albumin 3.8 04/29/19 14:44 NT-Pro-B Natriuret Pep 161 Impressions: Chest X-Ray 04/29/19 14:07 IMPRESSION: Chronic lung changes with no acute cardiopulmonary findings. Ankle X-Ray 04/29/19 14:08 IMPRESSION: No evidence of osteomyelitis. Foot X-Ray 04/29/19 14:08 IMPRESSION: No evidence of osteomyelitis. Assessment and Plan - Diagnosis (1) Left leg cellulitis Is this a current diagnosis for this admission?: Yes Plan: We will start empirically on antibiotics. Blood cultures are pending. Of also obtained a wound culture. (2) Diabetic ulcer of left lower leg Is this a current diagnosis for this admission?: Yes Plan: We will get an MRI to rule out osteomyelitis and have asked general surgery to s ee him to evaluate the wound. (3) COPD (chronic obstructive pulmonary disease) Qualifiers: COPD type: emphysema Emphysema type: panlobular Qualified Code(s): J43.1 - Panlobular emphysema Is this a current diagnosis for this admission?: Yes Plan: He was wheezing, but he says that he wheezes all the time. We will continue with his home meds and bronchodilators. (4) Chronic respiratory failure with hypoxia Is this a current diagnosis for this admission?: Yes Plan: He is on 3 L of oxygen at home continuously, will continue that. (5) Diabetes mellitus Qualifiers: Diabetes mellitus type: type 2 Diabetes mellitus fdc insulin use: without terminal block assembler use Diabetes mellitus complication status: with skin complications Diabetes mellitus complication detail: with foot ulcer Qualified Code(s): E11.621 - Type 2 diabetes mellitus with foot ulcer; L97.509 - Non-pressure chronic ulcer of other part of unspecified foot with unspecified severity Is this a current diagnosis for this admission?: Yes Plan: On metformin at home, we will keep him on insulin while he is here. - Time Time Spent with patient: 70 minutes Time Spent with patient: 35 or more minutes - Inpatient Certification Based on my medical assessment, after consideration of the patient's comorbidities, presenting symptoms, or acuity I expect that the services needed warrant INPATIENT care.: Yes I certify that my determination is in accordance with my understanding of Medicare's requirements for reasonable and necessary INPATIENT services [42 CFR 412.3e].: Yes Medical Necessity: Significant Comorbidiites Make Outpatient Treatment Too Risk y, Need Close Monitoring Due to Risk of Patient Decompensation, Need for IV Antibiotics, Need for Surgery
--- NOTE | 2019-04-29 19:16 | PDOC CONSULTATION ---
Consultation Consult Date: 04/29/19 Provider Consulted: YIFAN MAYNARD Consult reason:: chronic painful ulcer left ankle with erythematous swelling History of Present Illness Admission Date/PCP: 04/29/19 18:[facility] History of Present Illness: ZAC PRESTON is a 63 year old male with DM and COPD with a 1 1/2 years of ulceration on the left lateral ankle. Started as a blister and gradually got worse. This is being followed at the [facility] clinic in [place]. He was last seen about a week ago and scheduled to be seen again today. His appointment was cancelled and decided to come to our ED. He has swelling of the left ankle area for the past month and apparently given compression gadget that he does not use because of the pain. Past Medical History Cardiac Medical History: Reports: Congestive Heart Failure, Hypertension Denies: Myocardial Infarction Pulmonary Medical History: Reports: Bronchitis, Chronic Obstructive Pulmonary Disease (COPD), Sleep Apnea Denies: Asthma Neurological Medical History: Denies: Seizures Endocrine Medical History: Reports: Diabetes Mellitus Type 2 GI Medical History: Denies: Hepatitis, Hiatal Hernia Hematology: Denies: Anemia, Sickle Cell Disease Past Surgical History Past Surgical History: Denies: Pacemaker Social History Lives with: Alone Smoking Status: Former Smoker Frequency of Alcohol Use: Social Hx Recreational Drug Use: No Hx Prescription Drug Abuse: No Family History Family History: Reviewed & Not Pertinent, Other - CHF Parental Family History Reviewed: Yes Children Family History Reviewed: No Sibling(s) Family History Reviewed.: No Medication/Allergy Home Medications: Albuterol Sulfate [Albuterol Sulfate 2.5mg/3 mL] 2.5 mg NEB Q6 06/27/18 Atorvastatin Calcium [Lipitor 80 mg Tablet] 80 mg PO QHS 06/27/18 Budesonide/Formoterol Fumarate [Symbicort 160-4.5 Mcg Inhaler] 1 puff IH Q12 06/27/18 Metformin HCl [Glucophage 500 mg Tablet] 500 mg PO BID 06/27/18 Theophylline Anhydrous [Theophylline] 400 mg PO DAILY 06/27/18 Tiotropium [place] [Spiriva Handihaler 5 Cap/Kit (18 Mcg/Cap)] 1 puff IH DAILY 06/27/18 Allergies/Adverse Reactions: No Known Allergies Allergy (Verified 01/21/19 14:38) Review of Systems Constitutional: PRESENT: as per HPI, other - denies fever/chills Ears: PRESENT: other - no visual/hearing changes Respiratory: PRESENT: other - easily gets short of breath. Can only walk a few steps Gastrointestinal: PRESENT: other - no pains Genitourinary: PRESENT: other - no dysuria Musculoskeletal: PRESENT: back pain Integumentary: PRESENT: wounds - left lateral ankle wound/ulcer that is painful. Has swelling left foot,ankle and lower leg x 1 month Psychiatric: PRESENT: anxiety Physical Exam Vital Signs: Temp Pulse Resp BP Pulse Ox 97.6 F 99 19 135/93 H 99 04/29/19 12:45 04/29/19 12:45 04/29/19 15:33 04/29/19 17:01 04/29/19 18:00 Intake & Output 04/28/19 04/29/19 04/30/19 06:59 06:59 06:59 Weight 89.811 kg General appearance: PRESENT: mild distress Head exam: PRESENT: atraumatic Eye exam: PRESENT: conjunctiva pink Mouth exam: PRESENT: moist Neck exam: PRESENT: full ROM Cardiovascular exam: PRESENT: RRR Pulses: PRESENT: normal radial pulses, other - absent left ankle pulses Vascular exam: PRESENT: normal capillary refill GI/Abdominal exam: PRESENT: soft Extremities exam: PRESENT: pedal edema - as well as left ankle and lower leg also with erythema. Ulcer left ankle has necrotic area with small amount of foul smelling discharge. Specimen sent for C&S Musculoskeletal exam: PRESENT: ambulatory - to a very short distance because of getting short of breath. Rides a motorized scooter. Neurological exam: PRESENT: alert, oriented to person, oriented to place, oriented to time, oriented to situation Psychiatric exam: PRESENT: anxious Skin exam: PRESENT: erythema - of left foot up to left thigh. Tender Ulcer about 5-6 cm lateral ankle with some necrotic tissue. Can flex ankle., warm Results Laboratory Results: 04/29/19 14:44 04/29/19 14:44 04/29/19 04/29/19 04/29/19 14:44 14:44 17:59 WBC 7.3 RBC 4.57 Hgb 14.6 Hct 43.2 MCV 95 MCH 32.0 MCHC 33.8 RDW 14.9 H Plt Count 311 Seg Neutrophils % 70.9 Lymphocytes % 19.0 Monocytes % 8.6 Eosinophils % 0.9 Basophils % 0.6 Absolute Neutrophils 5.2 Absolute Lymphocytes 1.4 Absolute Monocytes 0.6 Absolute Eosinophils 0.1 Absolute Basophils 0.0 Sodium 135.8 L Potassium 4.2 Chloride 93 L Carbon Dioxide 36 H Anion Gap 7 BUN 9 Creatinine 0.45 L Est GFR ( Amer) > 60 Est GFR (Non-Af Amer) > 60 Glucose 80 Lactic Acid 1.6 Calcium 9.0 Total Bilirubin 0.3 AST 19 ALT 20 L Alkaline Phosphatase 116 Total Protein 7.1 Albumin 3.8 04/29/19 14:44 NT-Pro-B Natriuret Pep 161 Impressions: Chest X-Ray 04/29/19 14:07 IMPRESSION: Chronic lung changes with no acute cardiopulmonary findings. Ankle X-Ray 04/29/19 14:08 IMPRESSION: No evidence of osteomyelitis. Foot X-Ray 04/29/19 14:08 IMPRESSION: No evidence of osteomyelitis. Assessment & Plan - Diagnosis (1) left ankle ulcer with cellulitis Is this a current diagnosis for this admission?: Yes (2) COPD (chronic obstructive pulmonary disease) Qualifiers: COPD type: emphysema Emphysema type: panlobular Qualified Code(s): J43.1 - Panlobular emphysema Is this a current diagnosis for this admission?: Yes (3) Diabetes mellitus Qualifiers: Diabetes mellitus type: type 2 Diabetes mellitus assisted insulin use: without assisted use Diabetes mellitus complication status: with skin complications Diabetes mellitus complication detail: with foot ulcer Qualified Code(s): E11.621 - Type 2 diabetes mellitus with foot ulcer; L97.509 - Non-pressure chronic ulcer of other part of unspecified foot with unspecified severity Is this a current diagnosis for this admission?: Yes (4) Diabetic ulcer of left lower leg Is this a current diagnosis for this admission?: Yes (5) Left leg cellulitis Is this a current diagnosis for this admission?: Yes - Time Time Spent: 30 to 50 Minutes - Inpatient Certification Medical Necessity: Need for IV Antibiotics, Need for Surgery - Plan Summary Plan Summary: Will need to keep left foot/leg elevated Continue IV antibiotics Will debride left ankle ulcer in the OR tomorrow Keep NPO after midnight D/W Hospitalist
[2019-04-29] MEDS: ALBUTEROL SULFATE 0.083% NEB 2.5 MG/3 ML AMPUL NEB SCH (20:07)
[2019-04-29] MEDS ORDERED: BUDESONIDE IH SCH (22:00)
[2019-04-29] MEDS ORDERED: FORMOTEROL FUMARATE IH SCH (22:00)
[2019-04-29] MEDS ORDERED: [UNRECOGNIZED DRUG - OTHER] IH SCH (22:00)
[2019-04-29] MEDS: INSULIN LISPRO 100 UNIT/ML 3 ML VIAL SUBCUT SCH (22:01)
[2019-04-29] MEDS: MEROPENEM 1 GM in NORMAL SALINE 50 ML IV SCH (22:12)
[2019-04-29] MEDS: ATORVASTATIN CALCIUM 80 MG TABLET PO SCH (22:13)
[2019-04-29] MEDS: HEPARIN SOD (PORCINE) 5,000 UNIT/ML 1 ML SYRINGE SUBCUT SCH (22:18)
[2019-04-30] MEDS ORDERED: ALBUTEROL SULFATE 0.083% NEB 2.5 MG/3 ML AMPUL NEB SCH
[2019-04-30] MEDS: ALBUTEROL SULFATE 0.083% NEB 2.5 MG/3 ML AMPUL NEB SCH ×4 (02:13→19:49)
[2019-04-30] MEDS: VANCOMYCIN HCL 1,500 MG in DEXTROSE 5%-WATER 250 ML IV SCH ×2 (04:21→17:58)
[2019-04-30] MEDS: HEPARIN SOD (PORCINE) 5,000 UNIT/ML 1 ML SYRINGE SUBCUT SCH ×3 (06:16→22:13)
[2019-04-30] MEDS: MEROPENEM 1 GM in NORMAL SALINE 50 ML IV SCH ×3 (06:17→22:14)
[2019-04-30 06:18] LABS: HEMATOCRIT 41.3 % (37.9-51.0); HEMOGLOBIN 13.5 g/dL (13.5-17.0); MEAN CORPUSCULAR HEMOGLOBIN 31.3 pg (27.0-33.4); MEAN CORPUSCULAR HGB CONC 32.6 g/dL (32.0-36.0); MEAN CORPUSCULAR VOLUME 96 fl (80-97); PLATELET COUNT 276 10^3/uL (150-450); RED BLOOD COUNT 4.31 10^6/uL (4.35-5.55); WHITE BLOOD COUNT 7.8 10^3/uL (4.0-10.5)
[2019-04-30 06:43] LABS: ANION GAP 5 (5-19); BLOOD UREA NITROGEN 10 mg/dL (7-20); CALCIUM 7.9 mg/dL (8.4-10.2); CARBON DIOXIDE 38 mmol/L (22-30); CHLORIDE 95 mmol/L (98-107); GLUCOSE 90 mg/dL (75-110); POTASSIUM 4.7 mmol/L (3.6-5.0); SODIUM 138.3 mmol/L (137-145)
[2019-04-30] MEDS: INSULIN LISPRO 100 UNIT/ML 3 ML VIAL SUBCUT SCH ×4 (08:04→22:06)
[2019-04-30] MEDS ORDERED: CALCIUM GLUCONATE 1000 MG/10 ML INJ IV ONE (08:56)
[2019-04-30] MEDS ORDERED: NORMAL SALINE 1000 ML 1,000 ML IV PRN (09:04)
[2019-04-30] MEDS ORDERED: ACETAMINOPHEN 325 MG TABLET PO PRN (09:08)
[2019-04-30] MEDS: FLUTICASONE/VILANTEROL 200-25 MCG/DOSE IH SCH (09:20)
[2019-04-30] MEDS: METHYLPREDNISOLONE INJ 40 MG/1 ML SDV IV SCH ×2 (09:20→22:13)
[2019-04-30] MEDS: TIOTROPIUM BROMIDE DPI 5 CAP/KIT (18 MCG/CAP) IH SCH (09:21)
[2019-04-30] MEDS: THEOPHYLLINE ANHYDROUS 100 MG TAB.SR.12H PO SCH (09:36)
[2019-04-30] MEDS: OXYCODONE-ACETAMINOPHEN 5-325 MG TABLET PO PRN ×3 (09:37→22:13)
[2019-04-30] MEDS ORDERED: THEOPHYLLINE ANHYDROUS 400 MG PO SCH (10:00)
--- NOTE | 2019-04-30 10:51 | EKG REPORT ---
SEVERITY:- OTHERWISE NORMAL ECG - SINUS RHYTHM BORDERLINE LEFT AXIS DEVIATION : Confirmed by: Chrissy Zelaya MD 30-Apr-2019 10:50:38
--- NOTE | 2019-04-30 10:57 | RADIOLOGY REPORT (SQ) ---
EXAM DESCRIPTION: MRI LT LOWER EXTREMITY WITHOUT COMPLETED DATE/TIME: 04/30/2019 10:21 am REASON FOR STUDY: left ankle chronic wound, r/o osteomyelitis COMPARISON: None. TECHNIQUE: Multiplanar imaging of the left ankle and lower leg to include fat and fluid sensitive se quences. LIMITATIONS: Excessive motion. Patient could not complete all sequences. FINDINGS: BONE MARROW: Normal. SOFT TISSUES: No soft tissue abscess or swelling. OTHER: No other significant finding. IMPRESSION: Technical limitations. No evidence of osteomyelitis. TECHNICAL DOCUMENTATION: JOB ID: [id number] [employer]- All Rights Reserved Reading location - IP/workstation name: [email or web address]
[2019-04-30] MEDS ORDERED: GUAIFENESIN 400 MG PO PRN (10:58)
[2019-04-30] MEDS ORDERED: TRAMADOL HCL 50 MG TABLET PO PRN (10:58)
[2019-04-30] MEDS: FUROSEMIDE 40 MG TABLET PO SCH (12:03)
[2019-04-30] MEDS ORDERED: GUAIFENESIN SYRP 200 MG/10 ML UDC PO PRN (12:14)
--- NOTE | 2019-04-30 12:14 | PDOC PROGRESS REPORT ---
Subjective Progress Note for:: 04/30/19 Subjective:: ZAC PRESTON is a 63 year old male with DM and COPD with a 1 1/2 years of ulceration on the left lateral ankle. Started as a blister and gradually got worse. This is being followed at the [facility] in [place]. He was last seen about a week ago and scheduled to be seen again today. His appointment was cancelled and decided to come to our ED. He has swelling of the left ankle area for the past month and apparently given compression gadget that he does not use because of the pain. 04/30/2019. Patient n.p.o. for I&D scheduled by surgery. Planing of being hungry and thirsty denying any fever, chills, nausea, vomiting, diarrhea, constipation or any urinary symptoms. Patient does have bilateral lower extremity edema however denies having any history of CAD, when asked why he is taking Lasix he says his doctor put him on it and he does not know. Reason For Visit: LEFT ANKLE DIABETIC CELLULUTIS Physical Exam Vital Signs: Temp Pulse Resp BP Pulse Ox 97.6 F 101 H 20 133/65 H 98 04/30/19 07:56 04/30/19 08:04 04/30/19 08:04 04/30/19 07:56 04/30/19 08:04 Intake & Output 04/29/19 04/30/19 05/01/19 06:59 06:59 06:59 Intake Total 1300 50 Output Total 900 Balance 400 50 Weight 89.9 kg General appearance: PRESENT: mild distress Head exam: PRESENT: atraumatic, normocephalic Neck exam: ABSENT: carotid bruit, JVD, lymphadenopathy, thyromegaly Respiratory exam: PRESENT: decreased breath sounds, wheezes. ABSENT: rales, r honchi Cardiovascular exam: PRESENT: RRR. ABSENT: diastolic murmur, rubs, systolic murmur GI/Abdominal exam: PRESENT: normal bowel sounds, soft. ABSENT: distended, guarding, mass, organolmegaly, rebound, tenderness Extremities exam: PRESENT: +1 edema - BLE Musculoskeletal exam: PRESENT: tenderness - left ankle Neurological exam: PRESENT: alert, awake, oriented to person, oriented to place, oriented to time, oriented to situation, CN II-XII grossly intact. ABSENT: madalyn r sensory deficit Psychiatric exam: PRESENT: anxious Results Laboratory Results: 04/30/19 05:20 04/30/19 05:20 04/29/19 04/29/19 04/29/19 14:44 14:44 17:59 WBC 7.3 RBC 4.57 Hgb 14.6 Hct 43.2 MCV 95 MCH 32.0 MCHC 33.8 RDW 14.9 H Plt Count 311 Seg Neutrophils % 70.9 Lymphocytes % 19.0 Monocytes % 8.6 Eosinophils % 0.9 Basophils % 0.6 Absolute Neutrophils 5.2 Absolute Lymphocytes 1.4 Absolute Monocytes 0.6 Absolute Eosinophils 0.1 Absolute Basophils 0.0 Sodium 135.8 L Potassium 4.2 Chloride 93 L Carbon Dioxide 36 H Anion Gap 7 BUN 9 Creatinine 0.45 L Est GFR ( Amer) > 60 Est GFR (Non-Af Amer) > 60 Glucose 80 Lactic Acid 1.6 Calcium 9.0 Total Bilirubin 0.3 AST 19 ALT 20 L Alkaline Phosphatase 116 Total Protein 7.1 Albumin 3.8 04/30/19 04/30/19 05:20 05:20 WBC 7.8 RBC 4.31 L Hgb 13.5 Hct 41.3 MCV 96 MCH 31.3 MCHC 32.6 RDW 15.0 H Plt Count 276 Seg Neutrophils % Lymphocytes % Monocytes % Eosinophils % Basophils % Absolute Neutrophils Absolute Lymphocytes Absolute Monocytes Absolute Eosinophils Absolute Basophils Sodium 138.3 Potassium 4.7 Chloride 95 L Carbon Dioxide 38 H Anion Gap 5 BUN 10 Creatinine 0.41 L Est GFR ( Amer) > 60 Est GFR (Non-Af Amer) > 60 Glucose 90 Lactic Acid Calcium 7.9 L Total Bilirubin AST ALT Alkaline Phosphatase Total Protein Albumin 04/29/19 14:44 NT-Pro-B Natriuret Pep 161 Impressions: Chest X-Ray 04/29/19 14:07 IMPRESSION: Chronic lung changes with no acute cardiopulmonary findings. Ankle X-Ray 04/29/19 14:08 IMPRESSION: No evidence of osteomyelitis. Foot X-Ray 04/29/19 14:08 IMPRESSION: No evidence of osteomyelitis. Lower Extremity MRI 04/30/19 00:00 IMPRESSION: Technical limitations. No evidence of osteomyelitis. Assessment and Plan - Diagnosis (1) Acute respiratory failure with hypoxia Is this a current diagnosis for this admission?: Yes Plan: Likely due to COPD exacerbation. Patient may have underlying CHF based on physical examination. He has bilateral lower extremity edema and is on Lasix however denies any history of CAD. Review of the records patient does not have any proBNP or echoes in the past. Will order proBNP if positive he may need a 2D echo. Continue DuoNeb's, BiPAP as needed, supplemental oxygen, IV steroids and LAMA/L MISAEL. 03/30/2019: SBP 988235, T-max 97.6, pulse 97264, SPO2 91-98% 3 L NC. BC 7.8, hemoglobin 13.5, platelets 276, sodium 138, potassium 4.5, bicarb 38, creatinine 0.4 Antibiotics day 2. Meropenem and vancomycin day 1 Received 1 dose of Zosyn in ED on 04/19/2019. (2) COPD exacerbation Is this a current diagnosis for this admission?: Yes Plan: As per #1. (3) Diabetic ulcer of left lower leg Is this a current diagnosis for this admission?: Yes Plan: Likely polymicrobial. MRI left lower extremity negative for osteomyelitis. Pending I&D by surgery. Antibiotics day 2. Meropenem and vancomycin day 1 Received 1 dose of Zosyn in ED on 04/19/2019. Follow-up blood and wound culture. Continue wound care. Surgery consulted recommendations will be noted. (4) Diabetic ulcer of ankle Is this a current diagnosis for this admission?: No Plan: as above (5) Diabetes mellitus Qualifiers: Diabetes mellitus type: type 2 Diabetes mellitus termite inspector insulin use: without termite inspector use Diabetes mellitus complication status: with skin complications Diabetes mellitus complication detail: with foot ulcer Qualified Code(s): E11.621 - Type 2 diabetes mellitus with foot ulcer; L97.509 - Non-pressure chronic ulcer of other part of unspecified foot with unspecified severity Is this a current diagnosis for this admission?: Yes Plan: Controlled. Takes metformin at home. A1c 5.5. Continue diabetic diet, sliding scale insulin, pre-meal insulin, long-acting insulin. Adjust dosage as needed. Start home meds on discharge. Outpatient PCP follow-up. (6) Hyperlipidemia Is this a current diagnosis for this admission?: No Plan: Continue Atorvastatin 80 mg nightly. LFTs within normal limits. Diet and lifestyle modification recommended. (7) Hypertension Is this a current diagnosis for this admission?: No Plan: Normotensive. Bilateral lower extremity edema. Continue lisinopril 2.5 mg p.o. daily, Lasix 40 mg p.o. daily. Cardiac diet proBNP and if significantly elevated will order 2D echo.
[2019-04-30] MEDS: GABAPENTIN 400 MG CAPSULE PO SCH ×2 (13:15→22:13)
[2019-04-30 13:22] LABS: CHOLESTEROL 127.55 mg/dL (0-200); TRIGLYCERIDES 90 mg/dL (<150)
[2019-04-30 13:33] LABS: DIRECT LDL 100 mg/dL (<100)
[2019-04-30] MEDS ORDERED: KETAMINE HCL INJ 500 MG/10 ML VIAL ONE (15:59)
[2019-04-30] MEDS ORDERED: ONDANSETRON HCL INJ/PF 4 MG/2 ML SDV ONE (16:00)
[2019-04-30] MEDS ORDERED: FENTANYL CITRATE INJ/PF 100 MCG/2 ML AMPUL ONE (16:00)
[2019-04-30] MEDS ORDERED: PROPOFOL INJ 200 MG/20 ML VIAL IV ONE (16:00)
[2019-04-30] MEDS ORDERED: MIDAZOLAM 2 MG/2 ML INJ ONE (16:00)
[2019-04-30] MEDS ORDERED: DIPHENHYDRAMINE HCL 50 MG/ML VIAL IV PRN (16:33)
[2019-04-30] MEDS ORDERED: PROMETHAZINE HCL INJ 25 MG/1 ML VIAL IV PRN ×2 (16:33)
[2019-04-30] MEDS ORDERED: ONDANSETRON HCL INJ/PF 4 MG/2 ML SDV IV PRN (16:33)
[2019-04-30] MEDS ORDERED: MORPHINE SULFATE 10 MG/ML INJ IV PRN (16:33)
[2019-04-30] MEDS ORDERED: FENTANYL CITRATE INJ/PF 100 MCG/2 ML AMPUL IV PRN ×3 (16:33)
[2019-04-30] MEDS ORDERED: MEPERIDINE HCL/PF INJ 25 MG/1 ML DISP.SYRIN IV PRN (16:33)
[2019-04-30] MEDS ORDERED: LIDOCAINE 1% INJ-PF (10 MG/ML) 30 ML SDV ONE (16:35)
--- NOTE | 2019-04-30 18:49 | OPERATIVE REPORT E ---
Operative Report NAME: ZAC PRESTON : 1955 AGE: 63Y DATE OF SURGERY: 04/30/2019 ROOM: 305 PREOPERATIVE DIAGNOSIS: CHRONIC ULCER ALONG THE LEFT ANKLE WITH NECROTIC AREAS AND EDEMA WITH ERYTHEMA AROUND IT. POSTOPERATIVE DIAGNOSIS: CHRONIC ULCER ALONG THE LEFT ANKLE WITH NECROTIC AREAS AND EDEMA WITH ERYTHEMA AROUND IT. OPERATION: DEBRIDEMENT OF LEFT ANKLE ULCER ABOUT 5 X 5 CM. SURGEON: YIFAN MAYNARD M.D. ANESTHESIA: Local MAC. INDICATION: This is a 63-year-old male with history of chronic ulcer along the left ankle area that is being followed at the [facility]. The patient was seen at the clinic last week and told to come back yesterday. However, his appointment was canceled and he went to the ED, where he was noted to have cellulitis of a large ulcer along the left ankle. Culture of a small amount of foul-smelling fluid was taken in the ED, and this showed gram-negative rods. His white count was normal. There is a lot of edema around the foot, ankle, and leg. He has been using a motorized scooter most of the time, and suspiciously not elevating his leg regularly. PROCEDURE: After adequate IV sedation, the patient was placed in supine position and the left lower leg prepped and draped in the usual sterile fashion. Appropriate timeout was then called. Next, lidocaine was used to infiltrate around the ulcer site. The ulcer site was then debrided sharply using 10 blades. There was a small amount of necrotic area with minimal drainage that was sent for C and S. The fascia and fatty tissue was debrided sharply. Some bleeders were noted and controlled with cautery. The cavity site roughly measured about 5 x 5 cm x about 0.5 cm. The ulcer was then pulse lavaged with saline solution. Further curetting of the ulcer was done. There is a lot of edema around the ulcer site. There was a considerable amount of bleeding noted around most of the ulcer site. Hemostasis was noted and the ulcer site was then dressed with a single layer of Xeroform gauze with 4 x 4, ABD, and Kerlix. The patient tolerated the procedure well. Needle, instrument, and sponge count were all correct. Estimated blood loss about 5 mL. DICTATING PHYSICIAN: YIFAN MAYNARD M.D. [id number] PHY#: [id number] ID: [id number] JOB#: [id number] ACCT: [id number] cc:YIFAN MAYNARD M.D. >
[2019-04-30] MEDS: ATORVASTATIN CALCIUM 80 MG TABLET PO SCH (22:13)
[2019-04-30] MEDS: BUPROPION HCL 75 MG TABLET PO SCH (22:13)
[2019-05-01] MEDS: ALBUTEROL SULFATE 0.083% NEB 2.5 MG/3 ML AMPUL NEB SCH ×4 (02:07→20:06)
[2019-05-01 05:11] LABS: HEMATOCRIT 40.1 % (37.9-51.0); HEMOGLOBIN 13.4 g/dL (13.5-17.0); MEAN CORPUSCULAR HEMOGLOBIN 31.7 pg (27.0-33.4); MEAN CORPUSCULAR HGB CONC 33.4 g/dL (32.0-36.0); MEAN CORPUSCULAR VOLUME 95 fl (80-97); PLATELET COUNT 272 10^3/uL (150-450); RED BLOOD COUNT 4.22 10^6/uL (4.35-5.55); RED CELL DISTRIBUTION WIDTH 15.1 % (11.5-14.0); WHITE BLOOD COUNT 7.2 10^3/uL (4.0-10.5)
[2019-05-01 05:37] LABS: BLOOD UREA NITROGEN 9 mg/dL (7-20); CALCIUM 8.8 mg/dL (8.4-10.2); CHLORIDE 90 mmol/L (98-107); GLUCOSE 128 mg/dL (75-110); POTASSIUM 4.8 mmol/L (3.6-5.0); SODIUM 136.6 mmol/L (137-145)
[2019-05-01] MEDS: HEPARIN SOD (PORCINE) 5,000 UNIT/ML 1 ML SYRINGE SUBCUT SCH ×3 (05:41→22:26)
[2019-05-01] MEDS: GABAPENTIN 400 MG CAPSULE PO SCH ×3 (05:42→22:26)
[2019-05-01] MEDS: MEROPENEM 1 GM in NORMAL SALINE 50 ML IV SCH ×3 (05:45→22:42)
[2019-05-01 05:47] LABS: ANION GAP 8 (5-19)
[2019-05-01 05:48] LABS: CARBON DIOXIDE 39 mmol/L (22-30)
[2019-05-01] MEDS: VANCOMYCIN HCL 1,500 MG in DEXTROSE 5%-WATER 250 ML IV SCH (06:45)
[2019-05-01] MEDS: FUROSEMIDE 40 MG TABLET PO SCH (08:01)
[2019-05-01] MEDS: INSULIN LISPRO 100 UNIT/ML 3 ML VIAL SUBCUT SCH ×4 (08:02→22:26)
[2019-05-01] MEDS: THEOPHYLLINE ANHYDROUS 100 MG TAB.SR.12H PO SCH (09:37)
[2019-05-01] MEDS: TIOTROPIUM BROMIDE DPI 5 CAP/KIT (18 MCG/CAP) IH SCH (09:37)
[2019-05-01] MEDS: BUPROPION HCL 75 MG TABLET PO SCH ×2 (09:37→22:41)
[2019-05-01] MEDS: ASCORBIC ACID 500 MG TABLET PO SCH (09:37)
[2019-05-01] MEDS: CHOLECALCIFEROL (D3) 400 UNIT TABLET PO SCH (09:37)
[2019-05-01] MEDS: LISINOPRIL 5 MG TABLET PO SCH (09:37)
[2019-05-01] MEDS: METHYLPREDNISOLONE INJ 40 MG/1 ML SDV IV SCH ×2 (09:38→22:26)
[2019-05-01] MEDS: FLUTICASONE/VILANTEROL 200-25 MCG/DOSE IH SCH (09:38)
[2019-05-01] MEDS: FLUTICASONE NASAL SPRAY 50 MCG/SPRY 120 SPRAY/16 GM NAREB SCH (09:38)
--- NOTE | 2019-05-01 12:00 | PDOC PROGRESS REPORT ---
Subjective Progress Note for:: 05/01/19 Reason For Visit: LEFT ANKLE DIABETIC CELLULUTIS Physical Exam Vital Signs: Temp Pulse Resp BP Pulse Ox 97.8 F 107 H 14 131/74 H 100 05/01/19 07:49 05/01/19 07:49 05/01/19 07:49 05/01/19 07:49 05/01/19 07:49 Intake & Output 04/30/19 05/01/19 05/02/19 06:59 06:59 06:59 Intake Total 1300 1840 250 Output Total 900 2577 Balance 400 -737 250 Weight 89.9 kg 89.2 kg Results Laboratory Results: 05/01/19 04:20 05/01/19 04:20 04/30/19 05/01/19 05/01/19 05:20 04:20 04:20 WBC 7.2 RBC 4.22 L Hgb 13.4 L Hct 40.1 MCV 95 MCH 31.7 MCHC 33.4 RDW 15.1 H Plt Count 272 Sodium 136.6 L Potassium 4.8 Chloride 90 L Carbon Dioxide 39 H Anion Gap 8 BUN 9 Creatinine 0.45 L Est GFR ( Amer) > 60 Est GFR (Non-Af Amer) > 60 Glucose 128 H Calcium 8.8 Magnesium 2.1 Triglycerides 90 Cholesterol 127.55 LDL Cholesterol Direct 100 VLDL Cholesterol 18.0 HDL Cholesterol 31 L 04/29/19 18:39 Foot - Left Gram Stain - Final 04/29/19 04/30/19 14:44 05:20 NT-Pro-B Natriuret Pep 161 331 Impressions: Chest X-Ray 04/29/19 14:07 IMPRESSION: Chronic lung changes with no acute cardiopulmonary findings. Ankle X-Ray 04/29/19 14:08 IMPRESSION: No evidence of osteomyelitis. Foot X-Ray 04/29/19 14:08 IMPRESSION: No evidence of osteomyelitis. Lower Extremity MRI 04/30/19 00:00 IMPRESSION: Technical limitations. No evidence of osteomyelitis. Assessment & Plan - Plan Summary Plan Summary: This is a 63-year-old male status post debridement of a necrotic ulcer of the left lateral malleolus. Patient has chronic venous disease, with woody/brawny changes of bilateral lower extremities. His ulcer today appears clean, without signs of necrosis or infection. He does have a mild amount of erythema in the immediate vicinity of the ulcer. The patient has compression stockings at home, but refuses to wear them. I have recommended an Unna boot with weekly dressing changes in an attempt to provide him with compression and an environment conducive to healing. The patient has agreed to this. I will perform this at the bedside today. The patient is okay for discharge from a surgical standpoint. He needs to see his spring fitter and/or [place] [facility] within 1 week for change of his Unna boot.
--- NOTE | 2019-05-01 12:03 | Operative Report ---
Nonrecallable Operative Report DATE OF SURGERY: 05/01/19 PREOPERATIVE DIAGNOSIS: Venous stasis ulcer, left lateral malleolus POSTOPERATIVE DIAGNOSIS: Same as above OPERATION: Placement of Unna boot dressing to the left lower extremity. SURGEON: GÓMEZ ASHFORD ANESTHESIA: Other - None TISSUE REMOVED OR ALTERED: None COMPLICATIONS: None ESTIMATED BLOOD LOSS: None PROCEDURE: After consent was obtained from the patient, he was laid in the supine position in the hospital bed. The medicated Unna boot wrap was placed against the skin starting at the toes, and extending to approximately the mid calf. Next, Kerlix was used to wrap the foot, ankle, and leg up to the knee. Next graduated compression was applied via Coban bandages. This was taken up to the level of the knee. The patient tolerated the procedure well, suffering no complications. Condition: Stable.
--- NOTE | 2019-05-01 12:36 | PDOC PROGRESS REPORT ---
Subjective Progress Note for:: 05/01/19 Subjective:: ZAC PRESTON is a 63 year old male with DM and COPD with a 1 1/2 years of ulceration on the left lateral ankle. Started as a blister and gradually got worse. This is being followed at the [facility] in [place]. He was last seen about a week ago and scheduled to be seen again today. His appointment was cancelled and decided to come to our ED. He has swelling of the left ankle area for the past month and apparently given compression gadget that he does not use because of the pain. 04/30/2019. Patient n.p.o. for I&D scheduled by surgery. Planing of being hungry and thirsty denying any fever, chills, nausea, vomiting, diarrhea, constipation or any urinary symptoms. Patient does have bilateral lower extremity edema however denies having any history of CAD, when asked why he is taking Lasix he says his doctor put him on it and he does not know. Reason For Visit: LEFT ANKLE DIABETIC CELLULUTIS Physical Exam Vital Signs: Temp Pulse Resp BP Pulse Ox 97.8 F 107 H 14 131/74 H 100 05/01/19 07:49 05/01/19 07:49 05/01/19 07:49 05/01/19 07:49 05/01/19 07:49 Intake & Output 04/30/19 05/01/19 05/02/19 06:59 06:59 06:59 Intake Total 1300 1840 250 Output Total 900 2577 Balance 400 -737 250 Weight 89.9 kg 89.2 kg Results Laboratory Results: 05/01/19 04:20 05/01/19 04:20 04/30/19 05/01/19 05/01/19 05:20 04:20 04:20 WBC 7.2 RBC 4.22 L Hgb 13.4 L Hct 40.1 MCV 95 MCH 31.7 MCHC 33.4 RDW 15.1 H Plt Count 272 Sodium 136.6 L Potassium 4.8 Chloride 90 L Carbon Dioxide 39 H Anion Gap 8 BUN 9 Creatinine 0.45 L Est GFR ( Amer) > 60 Est GFR (Non-Af Amer) > 60 Glucose 128 H Calcium 8.8 Magnesium 2.1 Triglycerides 90 Cholesterol 127.55 LDL Cholesterol Direct 100 VLDL Cholesterol 18.0 HDL Cholesterol 31 L 04/29/19 18:39 Foot - Left Gram Stain - Final 04/29/19 04/30/19 14:44 05:20 NT-Pro-B Natriuret Pep 161 331 Impressions: Chest X-Ray 04/29/19 14:07 IMPRESSION: Chronic lung changes with no acute cardiopulmonary findings. Ankle X-Ray 04/29/19 14:08 IMPRESSION: No evidence of osteomyelitis. Foot X-Ray 04/29/19 14:08 IMPRESSION: No evidence of osteomyelitis. Lower Extremity MRI 04/30/19 00:00 IMPRESSION: Technical limitations. No evidence of osteomyelitis. Assessment and Plan - Diagnosis (1) Acute respiratory failure with hypoxia Is this a current diagnosis for this admission?: Yes (2) COPD exacerbation Is this a current diagnosis for this admission?: Yes (3) Diabetic ulcer of left lower leg Is this a current diagnosis for this admission?: Yes (4) Diabetic ulcer of ankle Is this a current diagnosis for this admission?: No (5) Diabetes mellitus Qualifiers: Diabetes mellitus type: type 2 Diabetes mellitus retirement insulin use: without retirement use Diabetes mellitus complication status: with skin complications Diabetes mellitus complication detail: with foot ulcer Qualified Code(s): E11.621 - Type 2 diabetes mellitus with foot ulcer; L97.509 - Non-pressure chronic ulcer of other part of unspecified foot with unspecified severity Is this a current diagnosis for this admission?: Yes (6) Hyperlipidemia Is this a current diagnosis for this admission?: No (7) Hypertension Is this a current diagnosis for this admission?: No
--- NOTE | 2019-05-01 12:48 | PDOC PROGRESS REPORT ---
Subjective Progress Note for:: 05/01/19 Subjective:: ZAC PRESTON is a 63 year old male with DM and COPD with a 1 1/2 years of ulceration on the left lateral ankle. Started as a blister and gradually got worse. This is being followed at the [facility] in [place]. He was last seen about a week ago and scheduled to be seen again today. His appointment was cancelled and decided to come to our ED. He has swelling of the left ankle area for the past month and apparently given compression gadget that he does not use because of the pain. 04/30/2019. Patient n.p.o. for I&D scheduled by surgery. Planing of being hungry and thirsty denying any fever, chills, nausea, vomiting, diarrhea, constipation or any urinary symptoms. Patient does have bilateral lower extremity edema however denies having any history of CAD, when asked why he is taking Lasix he says his doctor put him on it and he does not know. 05/01/2019. No acute events overnight. Status post I&D by surgery yesterday. Surgery has signed off and patient can be sent home with compression stocking and Unna boots. Left lower extremity pain has improved, still has 1+ bilateral extremity swelling. Any fever, chills, nausea, vomiting, diarrhea, constipation or any urinary symptoms. Wound culture or growing gram negative rods pending sensitivity. Reason For Visit: LEFT ANKLE DIABETIC CELLULUTIS Physical Exam Vital Signs: Temp Pulse Resp BP Pulse Ox 97.8 F 107 H 14 131/74 H 100 05/01/19 07:49 05/01/19 07:49 05/01/19 07:49 05/01/19 07:49 05/01/19 07:49 Intake & Output 04/30/19 05/01/19 05/02/19 06:59 06:59 06:59 Intake Total 1300 1840 250 Output Total 900 2577 Balance 400 -737 250 Weight 89.9 kg 89.2 kg General appearance: PRESENT: no acute distress, well-developed, well-nourished Head exam: PRESENT: atraumatic, normocephalic Neck exam: ABSENT: carotid bruit, JVD, lymphadenopathy, thyromegaly Respiratory exam: PRESENT: clear to auscultation kimani. ABSENT: rales, rhonchi, wheezes Cardiovascular exam: PRESENT: RRR. ABSENT: diastolic murmur, rubs, systolic murmur Extremities exam: PRESENT: full ROM, other - Bilateral lower extremity stasis dermatitis.. ABSENT: calf tenderness, clubbing, pedal edema Neurological exam: PRESENT: alert, awake, oriented to person, oriented to place, oriented to time, oriented to situation, CN II-XII grossly intact. ABSENT: motor sensory deficit Results Laboratory Results: 05/01/19 04:20 05/01/19 04:20 04/30/19 05/01/19 05/01/19 05:20 04:20 04:20 WBC 7.2 RBC 4.22 L Hgb 13.4 L Hct 40.1 MCV 95 MCH 31.7 MCHC 33.4 RDW 15.1 H Plt Count 272 Sodium 136.6 L Potassium 4.8 Chloride 90 L Carbon Dioxide 39 H Anion Gap 8 BUN 9 Creatinine 0.45 L Est GFR ( Amer) > 60 Est GFR (Non-Af Amer) > 60 Glucose 128 H Calcium 8.8 Magnesium 2.1 Triglycerides 90 Cholesterol 127.55 LDL Cholesterol Direct 100 VLDL Cholesterol 18.0 HDL Cholesterol 31 L 04/29/19 18:39 Foot - Left Gram Stain - Final 04/29/19 04/30/19 14:44 05:20 NT-Pro-B Natriuret Pep 161 331 Impressions: Chest X-Ray 04/29/19 14:07 IMPRESSION: Chronic lung changes with no acute cardiopulmonary findings. Ankle X-Ray 04/29/19 14:08 IMPRESSION: No evidence of osteomyelitis. Foot X-Ray 04/29/19 14:08 IMPRESSION: No evidence of osteomyelitis. Lower Extremity MRI 04/30/19 00:00 IMPRESSION: Technical limitations. No evidence of osteomyelitis. Assessment and Plan - Diagnosis (1) Acute respiratory failure with hypoxia Is this a current diagnosis for this admission?: Yes Plan: Improving. Likely due to COPD exacerbation. Continue DuoNeb's, BiPAP as needed, supplemental oxygen, IV steroids and LAMA/LABA. 03/30/2019: SBP 156341, T-max 97.6, pulse 86599, SPO2 91-98% 3 L NC. BC 7.8, hemoglobin 13.5, platelets 276, sodium 138, potassium 4.5, bicarb 38, creatinine 0.4 Antibiotics day 4 Meropenem Day 3 DC vancomycin. Received two days. Received 1 dose of Zosyn in ED on 04/19/2019. (2) Venous stasis dermatitis of both lower extremities Is this a current diagnosis for this admission?: Yes Plan: Likely due to venous insufficiency. Pt Denies and CAD, CKD or Cirrhosis. Has not any vascular surgery of the LE. Will increase Lasix to 40 IV bid with LE elevation, compression stockings. (3) COPD exacerbation Is this a current diagnosis for this admission?: Yes Plan: As per #1. (4) Diabetic ulcer of left lower leg Is this a current diagnosis for this admission?: Yes Plan: Likely polymicrobial. MRI left lower extremity negative for osteomyelitis. Day 2 s/p I&D by surgery and recommendation is to continue compression stockings, Unna boot with weekly dressing changes follow-up with [facility] within 1 week. Antibiotics day 4 Meropenem Day 3 DC vancomycin. Received two days. Received 1 dose of Zosyn in ED on 04/19/2019. Wound culture positive for GNRs. Pending C/S (5) Diabetic ulcer of ankle Is this a current diagnosis for this admission?: No Plan: as above (6) Diabetes mellitus Qualifiers: Diabetes mellitus type: type 2 Diabetes mellitus halfway insulin use: without halfway use Diabetes mellitus complication status: with skin complications Diabetes mellitus complication detail: with foot ulcer Qualified Code(s): E11.621 - Type 2 diabetes mellitus with foot ulcer; L97.509 - Non-pressure chronic ulcer of other part of unspecified foot with unspecified severity Is this a current diagnosis for this admission?: Yes Plan: Controlled. Takes metformin at home. A1c 5.5. Continue diabetic diet, sliding scale insulin, pre-meal insulin, long-acting insulin. Adjust dosage as needed. Start home meds on discharge. Outpatient PCP follow-up. (7) Hyperlipidemia Is this a current diagnosis for this admission?: No Plan: Continue Atorvastatin 80 mg nightly. LFTs within normal limits. Diet and lifestyle modification recommended. (8) Hypertension Is this a current diagnosis for this admission?: No Plan: Normotensive. Bilateral lower extremity edema. Pro-BnP WNL. Continue MARCIA and Lasix.
[2019-05-01] MEDS: FUROSEMIDE INJ/PF 40 MG/4 ML SDV IV SCH ×2 (13:39→22:25)
[2019-05-01] MEDS: ATORVASTATIN CALCIUM 80 MG TABLET PO SCH (22:26)
[2019-05-01] MEDS: OXYCODONE-ACETAMINOPHEN 5-325 MG TABLET PO PRN (22:38)
[2019-05-02] MEDS: ALBUTEROL SULFATE 0.083% NEB 2.5 MG/3 ML AMPUL NEB SCH ×3 (02:07→13:52)
[2019-05-02 04:51] VITALS: BP 100/55
[2019-05-02 05:14] LABS: HEMATOCRIT 37.4 % (37.9-51.0); HEMOGLOBIN 12.4 g/dL (13.5-17.0); MEAN CORPUSCULAR HEMOGLOBIN 31.5 pg (27.0-33.4); MEAN CORPUSCULAR HGB CONC 33.1 g/dL (32.0-36.0); MEAN CORPUSCULAR VOLUME 95 fl (80-97); PLATELET COUNT 267 10^3/uL (150-450); RED BLOOD COUNT 3.94 10^6/uL (4.35-5.55); RED CELL DISTRIBUTION WIDTH 15.1 % (11.5-14.0)
[2019-05-02 05:21] LABS: BLOOD UREA NITROGEN 10 mg/dL (7-20); CALCIUM 8.5 mg/dL (8.4-10.2); CHLORIDE 88 mmol/L (98-107); GLUCOSE 156 mg/dL (75-110); POTASSIUM 4.2 mmol/L (3.6-5.0); SODIUM 136.4 mmol/L (137-145)
[2019-05-02] MEDS: MEROPENEM 1 GM in NORMAL SALINE 50 ML IV SCH ×2 (05:39→15:08)
[2019-05-02] MEDS: HEPARIN SOD (PORCINE) 5,000 UNIT/ML 1 ML SYRINGE SUBCUT SCH ×2 (05:40→15:07)
[2019-05-02] MEDS: GABAPENTIN 400 MG CAPSULE PO SCH ×2 (05:40→15:08)
[2019-05-02 06:33] LABS: ANION GAP 1 (5-19)
[2019-05-02 06:34] LABS: CARBON DIOXIDE 47 mmol/L (22-30)
[2019-05-02] MEDS: INSULIN LISPRO 100 UNIT/ML 3 ML VIAL SUBCUT SCH ×2 (09:14→12:37)
[2019-05-02] MEDS: FUROSEMIDE INJ/PF 40 MG/4 ML SDV IV SCH (09:20)
[2019-05-02] MEDS: CHOLECALCIFEROL (D3) 400 UNIT TABLET PO SCH (09:24)
[2019-05-02] MEDS: ASCORBIC ACID 500 MG TABLET PO SCH (09:25)
[2019-05-02] MEDS: BUPROPION HCL 75 MG TABLET PO SCH (09:26)
[2019-05-02] MEDS: FUROSEMIDE 40 MG TABLET PO SCH (09:26)
[2019-05-02] MEDS: LISINOPRIL 5 MG TABLET PO SCH (09:26)
[2019-05-02] MEDS: THEOPHYLLINE ANHYDROUS 100 MG TAB.SR.12H PO SCH (09:26)
[2019-05-02] MEDS: TIOTROPIUM BROMIDE DPI 5 CAP/KIT (18 MCG/CAP) IH SCH (09:27)
[2019-05-02] MEDS: METHYLPREDNISOLONE INJ 40 MG/1 ML SDV IV SCH (09:27)
[2019-05-02] MEDS: FLUTICASONE/VILANTEROL 200-25 MCG/DOSE IH SCH (09:28)
[2019-05-02] MEDS: FLUTICASONE NASAL SPRAY 50 MCG/SPRY 120 SPRAY/16 GM NAREB SCH (09:28)
[2019-05-02 14:24] LABS: BLOOD UREA NITROGEN 12 mg/dL (7-20); CALCIUM 9.1 mg/dL (8.4-10.2); CHLORIDE 82 mmol/L (98-107); GLUCOSE 191 mg/dL (75-110); POTASSIUM 4.5 mmol/L (3.6-5.0); SODIUM 135.4 mmol/L (137-145)
[2019-05-02 14:40] LABS: ANION GAP 8 (5-19); CARBON DIOXIDE 45 mmol/L (22-30)
--- NOTE | 2019-05-03 17:54 | PDOC DISCHARGE SUMMARY ---
General - Admit/Disc Date/PCP Admission Date/Primary Care Provider: 04/29/19 18:[facility] Discharge Date: 05/02/19 - Discharge Diagnosis (1) Acute respiratory failure with hypoxia Is this a current diagnosis for this admission?: Yes (2) Venous stasis dermatitis of both lower extremities Is this a current diagnosis for this admission?: Yes (3) COPD exacerbation Is this a current diagnosis for this admission?: Yes (4) Diabetic ulcer of left lower leg Is this a current diagnosis for this admission?: Yes (5) Diabetic ulcer of ankle Is this a current diagnosis for this admission?: No (6) Diabetes mellitus Is this a current diagnosis for this admission?: Yes (7) Hyperlipidemia Is this a current diagnosis for this admission?: No (8) Hypertension Is this a current diagnosis for this admission?: No - Additional Information Resuscitation Status: Full Code Discharge Diet: Diabetic Discharge Activity: Balance Activity w/Rest Prescriptions: Levofloxacin [Levaquin 500 mg Tablet] 500 mg PO DAILY 7 Days #7 tablet Home Medications: Albuterol Sulfate [Albuterol Sulfate 2.5mg/3 mL] 2.5 mg NEB RTQ6HP PRN 06/27/18 Atorvastatin Calcium [Lipitor 80 mg Tablet] 80 mg PO QHS 06/27/18 Budesonide/Formoterol Fumarate [Symbicort 160-4.5 Mcg Inhaler] 1 puff IH Q12 06/27/18 Metformin HCl [Glucophage 500 mg Tablet] 500 mg PO BID 06/27/18 Theophylline Anhydrous [Theophylline] 400 mg PO DAILY 06/27/18 Tiotropium [place] [Spiriva Handihaler 5 Cap/Kit (18 Mcg/Cap)] 1 puff IH DAILY 06/27/18 Albuterol Sulfate [Albuterol Sulfate Hfa] 2 puff IH Q6HP PRN 04/30/19 Ascorbic Acid [Vitamin C 500 mg Tablet] 1,000 mg PO DAILY 04/30/19 Bupropion HCl [Wellbutrin 75 mg Tablet] 150 mg PO Q12 04/30/19 Cholecalciferol (Vitamin D3) [Vitamin D3 400 Unit Tablet] 800 unit PO DAILY 04/30/19 Fluticasone Propionate [Flonase Nasal [place] 50 Mcg/[place] 16 gm] 2 sprays NAREB DAILY 04/30/19 Furosemide [Lasix 40 mg Tablet] 40 mg PO QAM 04/30/19 Gabapentin [Neurontin 400 mg Capsule] 400 mg PO Q8 04/30/19 Guaifenesin [Mucus Relief Chest Congestion] 400 mg PO Q8HP PRN 04/30/19 Lisinopril [Prinivil 5 mg Tablet] 2.5 mg PO DAILY 04/30/19 Sodium Chloride [[place] Nasal [place] 44 ml Bottle] 2 spray NAREB QIDP PRN 04/30/19 Tramadol HCl [Ultram 50 mg Tablet] 50 mg PO Q8HP PRN 04/30/19 Levofloxacin [Levaquin 500 mg Tablet] 500 mg PO DAILY 7 Days #7 tablet 05/02/19 History of Present Illness History of Present Illness: MELY PRESTON is a 63 year old male with DM and COPD with a 1 1/2 years of ulceration on the left lateral ankle. Started as a blister and gradually got worse. This is being followed at [facility] in [place]. He was last seen about a week ago and scheduled to be seen again today. His appointment was cancelled and decided to come to our ED. He has swelling of the left ankle area for the past month and apparently given compression gadget that he does not use because of the pain. 04/30/2019. Patient n.p.o. for I&D scheduled by surgery. Planing of being hungry and thirsty denying any fever, chills, nausea, vomiting, diarrhea, constipation or any urinary symptoms. Patient does have bilateral lower extremity edema shade alfaro denies having any history of CAD, when asked why he is taking Lasix he says his doctor put him on it and he does not know. 05/01/2019. No acute events overnight. Status post I&D by surgery yesterday. Surgery has signed off and patient can be sent home with compression stocking and Unna boots. Left lower extremity pain has improved, still has 1+ bilateral extremity swelling. Any fever, chills, nausea, vomiting, diarrhea, constipation or any urinary symptoms. Wound culture or growing gram negative rods pending sensitivity. Hospital Course Hospital Course: (1) Acute respiratory failure with hypoxia Improved. Back to baseline. On Home O2. Has supplies. Likely due to COPD exacerbation. ContinueD DuoNeb's, BiPAP as needed, supplemental oxygen, IV steroids and LAMA/LABA. Antibiotics day 5 Meropenem Day 4 DC vancomycin. Received two days. Received 1 dose of Zosyn in ED on 04/19/2019. (2) Venous stasis dermatitis of both lower extremities Likely due to venous insufficiency. Pt Denies and CAD, CKD or Cirrhosis. Has not any vascular surgery of the LE. Will increase Lasix to 40 IV bid with LE elevation, compression stockings. Advised to continue Lasix and elevate legs when in bed. (3) COPD exacerbation As per #1. (4) Diabetic ulcer of left lower leg Polymicrobial. MRI left lower extremity negative for osteomyelitis. Day 3 s/p I&D by surgery and recommendation is to continue compression stockings, Unna boot with weekly dressing changes follow-up with [place] [facility] within 1 week. Received 5 days abs in patient. Was discharged on Levofloxacin for another 7 days. Follow up with Surgery as out patient. Meropenem Day 4 DC vancomycin. Received two days. Received 1 dose of Zosyn in ED on 04/19/2019. (5) Diabetic ulcer of ankle As above (6) Diabetes mellitus Controlled. Takes metformin at home. A1c 5.5. Continue diabetic diet, sliding scale insulin, pre-meal insulin, long-acting insulin. Adjust dosage as needed. Start home meds on discharge. Outpatient PCP follow-up. (7) Hyperlipidemia Continue Atorvastatin 80 mg nightly. LFTs within normal limits. Diet and lifestyle modification recommended. (8) Hypertension Normotensive. Bilateral lower extremity edema. Pro-BnP WNL. Continue MARCIA and Lasix. Physical Exam Vital Signs: Temp Pulse Resp BP Pulse Ox 98.3 F 88 23 H 100/55 L 94 05/02/19 15:14 05/02/19 15:14 05/02/19 15:14 05/02/19 03:12 05/02/19 15:14 Intake & Output 05/02/19 05/03/19 05/04/19 06:59 06:59 06:59 Intake Total 1830 50 Output Total 3375 Balance -1545 50 Weight 88.2 kg General appearance: PRESENT: no acute distress, well-developed, well-nourished Head exam: PRESENT: atraumatic, normocephalic Respiratory exam: PRESENT: clear to auscultation kimani. ABSENT: rales, rhonchi, wheezes Cardiovascular exam: PRESENT: RRR. ABSENT: diastolic murmur, rubs, systolic murmur Rectal exam: PRESENT: deferred Extremities exam: PRESENT: full ROM, other - LLE wound looks clean. no sign of infection or discharge.. ABSENT: calf tenderness, clubbing, pedal edema Neurological exam: PRESENT: alert, awake, oriented to person, oriented to place, oriented to time, oriented to situation, CN II-XII grossly intact. ABSENT: motor sensory deficit Results Laboratory Results: 05/02/19 04:26 05/02/19 13:30 04/30/19 16:36 Ankle - Left Gram Stain - Final 04/30/19 16:36 Ankle - Left Wound Culture - Final Enterobacter Cloacae Enterococcus Faecalis(Group D) Peptostreptococcus Species Prevotella Species 04/29/19 04/30/19 14:44 05:20 NT-Pro-B Natriuret Pep 161 331 Impressions: Chest X-Ray 04/29/19 14:07 IMPRESSION: Chronic lung changes with no acute cardiopulmonary findings. Ankle X-Ray 04/29/19 14:08 IMPRESSION: No evidence of osteomyelitis. Foot X-Ray 04/29/19 14:08 IMPRESSION: No evidence of osteomyelitis. Lower Extremity MRI 04/30/19 00:00 IMPRESSION: Technical limitations. No evidence of osteomyelitis. Qualifiers - * PATIENT BEING DISCHARGED WITH ANY OF THE FOLLOWING DIAGNOSIS: No Acute Heart Failure - Is this a Heart Failure Patient?: No
== END 2019-05-02 15:54 | disposition home or self-care (01) | DRG 622 ==
LOC: ER 11:52 → EH 18:40 → 3N 04-30 02:45
PROVIDERS: ADMIT Family Medicine; ATTEND Family Medicine
PROC: 5A09457 Assistance with Respiratory Ventilation, 24-96 Consecutive Hours, Continuous Positive Airway Pressure (ICD-10-PCS; 2019-04-29)
PROC: 0JBR0ZZ Excision of Left Foot Subcutaneous Tissue and Fascia, Open Approach (ICD-10-PCS; principal; 2019-04-30 15:15)
PROC: 2W1MX6Z Compression of Left Lower Extremity using Pressure Dressing (ICD-10-PCS; 2019-05-01)
DX: E11.621 Type 2 diabetes mellitus with foot ulcer (principal); J96.21 Acute and chronic respiratory failure with hypoxia; L03.116 Cellulitis of left lower limb; L97.529 Non-pressure chronic ulcer of other part of left foot with unspecified severity; I87.2 Venous insufficiency (chronic) (peripheral); E78.5 Hyperlipidemia, unspecified; B95.2 Enterococcus as the cause of diseases classified elsewhere; F41.9 Anxiety disorder, unspecified; E66.9 Obesity, unspecified; J43.1 Panlobular emphysema; Z60.2 Problems related to living alone; Z79.899 Other long term (current) drug therapy; I11.0 Hypertensive heart disease with heart failure; I50.9 Heart failure, unspecified; Z79.84 Long term (current) use of oral hypoglycemic drugs; Z87.891 Personal history of nicotine dependence; Z99.81 Dependence on supplemental oxygen
CPT/HCPCS: 00400; 36415; 71045; 80048; 80053; 80061; 80198; 82962; 83036; 83605; 83735; 83880; 85025; 85027; 87040; 87070; 87075; 87077; 87186; 87205; 93005; 93010; 94660; 96365; 99285; J0610; J1644; J1940; J2185; J2250; J2405; J2543; J2704; J2920; J3010; J3370; J3490; J7030; J7060

== ENCOUNTER → 2019-08-08 | Outpatient (CLI) | payer OTHER ==
--- NOTE | 2019-08-09 12:27 | XCELERA REPORT ---
[address] [address] Lower Extremity Arterial Evaluation Name: ZAC PRESTON Age: 64 yrs Gender: Male : 1955 Patient Status: Outpatient Patient Location: [facility] Study Date: 08/08/2019 02:20 PM Procedure: A color flow and duplex scan of the lower extremity arteries was performed bilaterally with velocity and waveform anaylsis. Ankle brachial indicies performed. Reason For Study: LT ANKLE ULCER Ordering Physician: WILLIAMS MCMANUS Performed By: Tito Juárez Measurements and Calculations Right Left FINANCIAL ANALYST PSV 115.2 153.2 cm/sec Prox PFA PSV -111.7 -91.5 cm/sec Prox SFA PSV 106.4 120.1 cm/sec Mid SFA PSV -144.9 -176.0cm/sec Dist SFA PSV -107.5 -173.7cm/sec Prox Pop A PSV 105.6 92.1 cm/sec Dist JONAS PSV 30.1 55.9 cm/sec Dist AUDIOVISUAL EQUIPMENT OPERATOR PSV 91.3 49.7 cm/sec Oliver Pedis PSV 23.6 -44.0 cm/sec Right Side Arterial Evaluation Normal velocity and triphasic waveforms noted in the Common Femoral artery. Biphasic with normal velocity in the Femoral to Posterior Tibial artery. Biphasic with low velocity in the Anterior Tibial artery. Ankle Brachial index not obtained due to non compressibility. Left Side Arterial Evaluation Normal velocity and triphasic waveforms noted in the Common Femoral artery. Biphasic with normal velocity in the Femoral to infrageniculate vessels. Ankle Brachial index not obtained due to non compressibility. Interpretation Summary Moderate hemodynamically significant lesions in the bilateral lower extremities, on duplex imaging, at rest. Duplex findings of disease effects from the Femoral, with Anterior Tibial sequential changes on the right. In the Femoral on the left. SANTANA's are non compressible, suggesting arterial wall stiffness, likely due to atherosclerosis, and calcification. : WILLIAMS MCMANUS > Fuad Briscoe
--- NOTE | 2019-08-09 16:02 | XCELERA REPORT ---
[address] [address] Lower Extremity Venous Evaluation Procedure: A bilateral duplex scan of the lower extremity veins was performed. The evaluation included responses to compression and other maneuvers with patient in the supine and standing positions to assess venous insufficiency. Right Sided Venous Evaluation Deep venous system evaluation shows patent veins with no significant reflux identified. Sapheno Femoral junction: no reflux. Greater Saphenous vein, Proximal thigh: reflux: no reflux. Greater Saphenous vein, mid thigh: reflux:no reflux. Greater Saphenous vein, Distal thigh: reflux:no reflux. Greater Saphenous vein, Proximal below knee: reflux: none Greater Saphenous vein, Mid below knee: reflux: none. Greater Saphenous vein, Distal below knee: reflux: no reflux. No significant Perforators identified. Left Sided Venous Evaluation Deep venous system evaluation shows patent veins with no significant reflux identified. Sapheno Femoral junction: no reflux. Greater Saphenous vein, Proximal thigh: reflux: no reflux. Greater Saphenous vein, mid thigh: reflux:no reflux. Greater Saphenous vein, Distal thigh: reflux:no reflux. Greater Saphenous vein, Proximal below knee: reflux: none Greater Saphenous vein, Mid below knee: reflux: none. Greater Saphenous vein, Distal below knee: reflux: no reflux. No significant Perforators identified. Interpretation Summary No duplex evidence of DVT or obstruction in the bilateral lower extremities. No deep or superficial reflux noted. Name: ZAC PRESTON Age: 64 yrs Gender: Male : 1955 Patient Status: Outpatient Patient Location: Study Date: 08/08/2019 02:46 PM Reason For Study: LT ANKLE ULCER Ordering Physician: WILLIAMS MCMANUS Performed By: Tito Juárez : WILLIAMS MCMANUS > Fuad Briscoe
== END ==
LOC: SP 13:51
PROVIDERS: ATTEND Preventive Medicine Undersea and Hyperbaric Medicine
DX: L97.322 Non-pressure chronic ulcer of left ankle with fat layer exposed (principal)
CPT/HCPCS: 93925; 93970